=== PATIENT | female | born 1930 | race Caucasian/White ===

== ENCOUNTER 2016-09-29 10:29 | Inpatient (IN) | payer OTHER, MEDICARE ==
[~2016-09-29] VITALS: Ht 157.5 cm; Wt 56.8 kg
[2016-09-29] VITALS (34 sets, daily range): BP systolic 78–178; BP diastolic 41–102; PULSE 76–139; RESP 14–36; TEMP 96–100.1; O2SAT 77–100
[~2016-09-29 10:29] MED LIST: ACET650T10 PR; ALBU.5I INH; ATEN-100 PO; DIPH25 OR; DOCU1CAP39 PO; LORA10TA OR; LOVA40TA PO; LOVE30IN SC; PROC90TA PO; REME15TA OR; SYMB160A INH; ULTR50TA PO
[2016-09-29] MEDS ORDERED: ETOMIDATE 40 MG/20 ML VIAL ONE (10:35)
[2016-09-29] MEDS ORDERED: SUCCINYLCHOLINE CHLORIDE 200 MG/10 ML VIAL ONE (10:36)
[2016-09-29] MEDS ORDERED: PROPOFOL 500 MG/50 ML INJ 50 ML ONE (10:40)
[2016-09-29] MEDS ORDERED: BUSP5TAB PO (10:51)
[2016-09-29] MEDS ORDERED: FURO20TA PO (10:51)
[2016-09-29] MEDS ORDERED: ATEN25TA PO (10:51)
[2016-09-29] MEDS ORDERED: MIRTA15 PO (10:51)
[2016-09-29] MEDS ORDERED: AMLO2.5T PO (10:51)
[2016-09-29] MEDS ORDERED: SYMB80AE INH (10:51)
[2016-09-29] MEDS ORDERED: PANT20TA2 PO (10:51)
[2016-09-29] MEDS ORDERED: TRAM50TA PO (10:51)
[2016-09-29] MEDS ORDERED: LOVA40TA PO (10:51)
[2016-09-29] MEDS: RESP: ALBUTEROL 2.5 MG/IPRATROPIUM 0.5 MG NEB (SCH) INH ×3 (11:05→20:21)
[2016-09-29] MEDS ORDERED: ETOMIDATE 20 MG/10 ML VIAL IV PUSH ONE (11:15)
[2016-09-29] MEDS ORDERED: SUCCINYLCHOLINE CHLORIDE 200 MG/10 ML VIAL IV PUSH ONE (11:15)
[2016-09-29] MEDS ORDERED: MIDAZOLAM HCL 2 MG/2 ML VIAL IV PUSH ONE (11:30)
--- NOTE | 2016-09-29 11:30 | RADRPT ---
EXAM DATE/TIME: 09/29/2016 11:07 [facility] COMPARISON: No previous studies available for comparison. INDICATIONS : Short of breath, endotrachial tube and ogt placement. MEDICAL HISTORY : None. SURGICAL HISTORY : None. ENCOUNTER: Initial ACUITY: 1 day PAIN SCORE: Non-responsive. LOCATION: Bilateral chest FINDINGS: A single view of the chest demonstrates the lungs to be symmetrically aerated without evidence of mas s, infiltrate or effusion. The lung colindres are hyperaerated bilaterally. There is chronic interstitia l changes bilaterally. The ET tube and NG tube appear to be in good position. There is no evidence of pneumothorax. There is chronic pleural thickening at both apices. The cardiomediastinal contours are unremarkable. Osseous structures are intact. CONCLUSION: 1. ET tube and NG tube are in good position. 2. No pneumothorax. 3. Hyperaeration bilaterally with chronic interstitial changes characteristic of COPD. 4. No acute pulmonary infiltrates. Prakash Diane MD on September 29, 2016 at 11:27 Board Certified Radiologist. This report was verified electronically.
[2016-09-29 11:38] LABS: BLOOD GAS BASE EXCESS -5.2 mmol/L (-2-2); BLOOD GAS CARBOXYHEMOGLOBIN 0.8 % (0-4); BLOOD GAS HCO3 20 mmol/L (22-26); BLOOD GAS METHEMOGLOBIN 1.5 % (0-2); BLOOD GAS O2 HGB SATURATION 96 % (90-100); BLOOD GAS OXYGEN CONTENT 15.7 Vol % (12.0-20.0); BLOOD GAS PCO2 40 mmHg (38-42); BLOOD GAS PO2 352 mmHG (61-120); CRITICAL VALUE NO; DRAW SITE RT RADIAL; FIO2 100 %; NUMBER OF ARTERIAL PUNCTURES 1; OXYGEN DEVICE VENTILATOR; STAT YES; TEMP CORR TO 98.6; ULNAR PULSE PRESENT; VENT SETTINGS AC/14/500/+5
[2016-09-29 11:40] LABS: AUTOMATED NEUTROPHIL # 8.7 TH/MM3 (1.8-7.7); BASOPHIL # 0.1 TH/MM3 (0-0.2); BASOPHIL % 0.6 % (0.0-2.0); EOSINOPHIL % 0.4 % (0.0-4.0); HEMATOCRIT 36.2 % (35.0-46.0); HEMO FLAGS DIFF FINAL; LYMPH % 15.2 % (9.0-44.0); LYMPHOCYTE # 1.7 TH/MM3 (1.0-4.8); MEAN CELL VOLUME 90.1 FL (80.0-100.0); MEAN CORPUSCULAR HEMOGLOBIN 29.2 PG (27.0-34.0); MEAN CORPUSCULAR HGB CONC 32.4 % (32.0-36.0); MONO % 7.5 % (0.0-8.0); NEUT % 76.3 % (16.0-70.0); PLATELET COUNT 287 TH/MM3 (150-450); RED BLOOD COUNT 4.01 MIL/MM3 (4.00-5.30); WHITE BLOOD COUNT 11.4 TH/MM3 (4.0-11.0)
[2016-09-29] MEDS ORDERED: VANCOMYCIN INJ 1,000 MG in SODIUM CHLOR 0.9% 250 ML INJ 250 ML IV SCH (11:45)
[2016-09-29] MEDS ORDERED: PIPERACIL-TAZO 4.5 GM PREMIX 100 ML IV ONE (11:45)
[2016-09-29] MEDS ORDERED: AZITHROMYCIN INJ 500 MG in SODIUM CHLOR 0.9% 250 ML INJ 250 ML IV ONE (11:45)
[2016-09-29 11:48] LABS: PROTHROMBIN TIME - PATIENT 10.8 SEC (9.8-11.6)
[2016-09-29 11:49] LABS: BLOOD, URINE NEG (NEG); COMMENT (UR) CULT NOT INDICATED; CULTURE IF INDICATED CULT NOT INDICATED; GLUCOSE,URINE NEG (NEG); KETONE, URINE NEG (NEG); MUCUS URINE FEW /lpf (OCC); NITRITE,URINE NEG (NEG); URINE COLOR YELLOW (YELLW/STRAW)
[2016-09-29 12:03] LABS: ANION GAP 10 MEQ/L (5-15); BICARBONATE 24.8 MEQ/L (21.0-32.0); BLOOD UREA NITROGEN 22 MG/DL (7-18); CHLORIDE 96 MEQ/L (98-107); GLOMERULAR FILTRATION RATE 31 ML/MIN (>89); MAGNESIUM 2.2 MG/DL (1.5-2.5); POTASSIUM 4.7 MEQ/L (3.5-5.1); SODIUM (NA) 131 MEQ/L (136-145)
[2016-09-29 12:07] LABS: CREATINE KINASE 130 U/L (26-192)
--- NOTE | 2016-09-29 12:07 | PD ---
HPI Chief Complaint: Respiratory Distress Time Seen by Provider: 10:52 Travel History International Travel<30 days: No Contact w/Intl Traveler<30days: No Traveled to known affect area: No History of Present Illness HPI 85-year-old female was brought into the emergency room by EMS as a possible STEMI alert. Patient was in severe respiratory distress and was unable to give any meaningful history. However upon asking patient denied of any chest pain. As per EMS patient has been sick for almost a week with shortness of breath and congestion. She was started on a Z-Galindo. However since last night her respiratory condition worsened and her daughter called 911 this morning. Her saturation was 84% on 4 L of oxygen via nasal cannula. Heart rate was in 130s. Her rectal temperature was 100.1. Patient was speaking 1 word per breath. She had received 2 albuterol on route by EMS. Patient did not feel any improvement with the DuoNeb's. She was also given 125 mg of IV Solu-Medrol. She has history of severe emphysema as per the paramedics. Daughter was on her way to the emergency room. I looked at the patient's condition and decided to intubate her. I spoke with the patient and expressed to her my concern regarding her breathing and need for intubation and patient agreed. [facility] Past Medical History Narrative Medical List of her past medical history was reviewed from the nursing note. Cardiovascular Problems: Yes High Cholesterol: Yes COPD: Yes Hypertension: Yes Medical other: Yes (PER FAMILY, RECENT START ON Z PACK ) Respiratory: Yes (NODULE FOUND ON LUNG) Menopausal: Yes : 3 Para: 3 Past Surgical History Gynecologic Surgery: Yes (HYSTERECTOMY) Hysterectomy: Yes (PARTIAL) Social History Alcohol Use: Yes (COUPLE COCKTAILS NIGHTLY) Tobacco Use: Yes (1/2 PPD) Substance Use: No Allergies-Medications (Allergen,Severity, Reaction): Coded Allergies: Codeine (Verified Allergy, Severe, 12/14/12) Lortab (Verified Allergy, Severe, 09/29/16) Percocet (Verified Allergy, Unknown, 09/29/16) Comments List of her allergies reviewed from the nursing note. Reported Meds & Prescriptions Reported Meds & Active Scripts Active Reported Tramadol (Tramadol HCl) 50 Mg Tab 50 Mg PO Q4H PRN Lovastatin 40 Mg Tab 40 Mg PO DAILY Symbicort Inh (Budesonide/Formoterol Fumarate) 80-4.5 Mcg/Act Aero 1 Puff INH Q12HR Pantoprazole (Pantoprazole Sodium) 20 Mg Tab 20 Mg PO DAILY Mirtazapine 15 Mg Tab 15 Mg PO HS Furosemide 20 Mg Tab 20 Mg PO DAILY Buspirone (Buspirone HCl) 5 Mg Tab 5 Mg PO Atenolol 25 Mg Tab 25 Mg PO DAILY Amlodipine (Amlodipine Besylate) 2.5 Mg Tab 2.5 Mg PO DAILY Remeron 15 mg (Mirtazapine) 15 Mg Tab 15 Mg OR HS Ultram (Tramadol HCl) 50 Mg Tab 50 Mg PO Q6HPRN Symbicort (Budesonide/Formoterol Fumarate) 160 Mcg/4.5 Mcg Aer 2 Puff INH BID * SHAKE WELL BEFORE USE * Claritin 10 Mg Tab (Loratadine) 10 Mg Tab 10 Mg OR DAILYPRN Acetaminophen Er (Acetaminophen) 650 Mg Supp 650 Mg LA Q6HPRN Colace 100 Mg Cap (Docusate Sodium) 100 Mg Cap 100 Mg PO BID Proventil Conc Ud 0.5% (2.5 Mg/0.5 Ml) (Albuterol Sulfate) 2.5 Mg/0.5 Ml Inha 2.5 Mg INH Q4HPRN Benadryl 25 Mg Cap (Diphenhydramine Hcl) 25 Mg Cap 25 Mg OR Q6HPRN Lovenox (Enoxaparin Sodium) 30 Mg/0.3 Ml Inj 30 Mg SC DAILY Lovastatin 40 Mg Tab 40 Mg PO DAILY Nifedipine Er (Nifedipine) 90 Mg Tab 90 Mg PO DAILY Atenolol 25 Mg Tab 25 Mg PO DAILY Narrative Medication List of her home medications reviewed from the nursing note. Review of Systems Except as stated in HPI: all other systems reviewed are Neg Physical Exam Narrative GENERAL: Altered mental status, severe respiratory distress, emaciated. SKIN: Warm and dry. HEAD: Atraumatic. Normocephalic. EYES: Pupils equal and round. No scleral icterus. No injection or drainage. ENT: No nasal bleeding or discharge. Mucous membranes pink and moist. NECK: Trachea midline. JVD. CARDIOVASCULAR: Regular rate and rhythm. Tachycardia. No murmur appreciated. RESPIRATORY: Decreased air entry bilaterally, accessory muscles use for respiration, tachypnea, one-word per breath GASTROINTESTINAL: Abdomen soft, non-tender, nondistended. Hepatic and splenic margins not palpable. MUSCULOSKELETAL: No obvious deformities. No clubbing. No cyanosis. No edema. NEUROLOGICAL: Anxious and lethargic. No obvious cranial nerve deficits. Motor grossly within normal limits. PSYCHIATRIC: Anxious; insight and judgment normal. Data Data Last Documented VS Vital Signs Date Time Temp Pulse Resp B/P Pulse Ox O2 Delivery O2 Flow Rate FiO2 09/29/16 12:11 97 16 93/62 100 Ventilator 09/29/16 12:07 4.00 09/29/16 11:53 50 09/29/16 11:10 100.1 Orders Etomidate Inj (Amidate Inj) (09/29/16 10:35) Succinylcholine Inj (Quelicin Inj) (09/29/16 10:36) Propofol 500 Mg/50 Ml Inj (Diprivan 500 (09/29/16 10:40) Complete Blood Count With Diff (09/29/16 10:59) Basic Metabolic Panel (Bmp) (09/29/16 10:59) B-Type Natriuretic Peptide (09/29/16 10:59) Prothrombin Time / Inr (Pt) (09/29/16 10:59) Magnesium (Mg) (09/29/16 10:59) Ckmb (Isoenzyme) Profile (09/29/16 10:59) Troponin I (09/29/16 10:59) Arterial Blood Gas (Abg) (09/29/16 10:59) Urinalysis - C+S If Indicated (09/29/16 10:59) Blood Culture (09/29/16 10:59) Iv Access Insert/Monitor (09/29/16 10:59) Electrocardiogram (09/29/16 10:59) Ecg Monitoring (09/29/16 10:59) Oximetry (09/29/16 10:59) Oxygen Administration (09/29/16 10:59) Chest, Single Ap (09/29/16 10:59) Sodium Chloride 0.9% Flush (Ns Flush) (09/29/16 11:00) Albuterol-Ipratropium Neb (Duoneb Neb) (09/29/16 11:00) Lactic Acid (09/29/16 10:59) Echo 2d Comp W/Dopp(Routine) (09/29/16 ) Consult Cardiology (09/29/16 ) Succinylcholine Inj (Quelicin Inj) (09/29/16 11:15) Etomidate Inj (Amidate Inj) (09/29/16 11:15) Propofol 1000 Mg/100 Ml Inj (Diprivan 10 (09/29/16 11:15) ^ Infusion (09/29/16 11:11) RASS (09/29/16 11:11) Neurological Rass Scale WILLIAM.Q2H (09/29/16 11:11) Radha-Gastric Tube Insert/Mon (09/29/16 11:11) Urinary Catheter Insert/Apply (09/29/16 11:11) Midazolam Inj (Versed Inj) (09/29/16 11:30) Electrocardiogram (09/29/16 10:34) Piperacil-Tazo 4.5 Gm Premix (Zosyn 4.5 (09/29/16 11:45) Vancomycin Inj (Vancomycin Inj) (09/29/16 11:45) Azithromycin Inj (Zithromax Inj) (09/29/16 11:45) (Hub Use Only)Inp Phy Cons/Ref (09/29/16 ) Sodium Chlor 0.9% 1000 Ml Inj (Ns 1000 M (09/29/16 12:15) CKMB (09/29/16 11:10) CKMB% (09/29/16 11:10) Admit Order (Ed Use Only) (09/29/16 12:27) Labs Laboratory Tests Test 09/29/16 09/29/16 11:10 11:30 White Blood Count 11.4 TH/MM3 Red Blood Count 4.01 MIL/MM3 Hemoglobin 11.7 GM/DL Hematocrit 36.2 % Mean Corpuscular Volume 90.1 FL Mean Corpuscular Hemoglobin 29.2 PG Mean Corpuscular Hemoglobin 32.4 % Concent Red Cell Distribution Width 14.0 % Platelet Count 287 TH/MM3 Mean Platelet Volume 10.5 FL Neutrophils (%) (Auto) 76.3 % Lymphocytes (%) (Auto) 15.2 % Monocytes (%) (Auto) 7.5 % Eosinophils (%) (Auto) 0.4 % Basophils (%) (Auto) 0.6 % Neutrophils # (Auto) 8.7 TH/MM3 Lymphocytes # (Auto) 1.7 TH/MM3 Monocytes # (Auto) 0.9 TH/MM3 Eosinophils # (Auto) 0.0 TH/MM3 Basophils # (Auto) 0.1 TH/MM3 CBC Comment DIFF FINAL Differential Comment Prothrombin Time 10.8 SEC Prothromb Time International 1.0 RATIO Ratio Urine Color YELLOW Urine Turbidity CLEAR Urine pH 6.0 Urine Specific [place] 1.010 Urine Protein 30 mg/dL Urine Glucose (UA) NEG mg/dL Urine Ketones NEG mg/dL Urine Occult Blood NEG Urine Nitrite NEG Urine Bilirubin NEG Urine Urobilinogen LESS THAN 2.0 MG/DL Urine Leukocyte Esterase NEG Urine RBC LESS THAN 1 /hpf Urine WBC 1 /hpf Urine Mucus FEW /lpf Microscopic Urinalysis Comment CULT NOT INDICATED Sodium Level 131 MEQ/L Potassium Level 4.7 MEQ/L Chloride Level 96 MEQ/L Carbon Dioxide Level 24.8 MEQ/L Anion Gap 10 MEQ/L Blood Urea Nitrogen 22 MG/DL Creatinine 1.58 MG/DL Estimat Glomerular Filtration 31 ML/MIN Rate Random Glucose 249 MG/DL Lactic Acid Level 3.1 mmol/L Calcium Level 8.9 MG/DL Magnesium Level 2.2 MG/DL Total Creatine Kinase 130 U/L Creatine Kinase MB 3.0 NG/ML Troponin I 0.84 NG/ML B-Type Natriuretic Peptide 476 PG/ML Blood Gas Puncture Site RT RADIAL Blood Gas Patient Temperature 98.6 Blood Gas HCO3 20 mmol/L Blood Gas Base Excess -5.2 mmol/L Blood Gas Oxygen Saturation 96 % Arterial Blood pH 7.32 Arterial Blood Partial 40 mmHg Pressure CO2 Arterial Blood Partial 352 mmHG Pressure O2 Arterial Blood Oxygen Content 15.7 Vol % Arterial Blood 0.8 % Carboxyhemoglobin Arterial Blood Methemoglobin 1.5 % Blood Gas Hemoglobin 11.0 G/DL Oxygen Delivery Device VENTILATOR Blood Gas Ventilator Setting AC/14/500/+5 Blood Gas Inspired Oxygen 100 % MDM Medical Decision Making Medical Screen Exam Complete: Yes Emergency Medical Condition: Yes Medical Record Reviewed: Yes Interpretation(s) Twelve-lead EKG initial was reviewed by me. Normal sinus rhythm, tachycardia, peaked T waves with possible ST elevation in the septal leads with Q waves, normal axis. Heart rate of 142 bpm. Differential Diagnosis COPD exacerbation, respiratory failure, pneumonia, pulmonary edema, pleural effusion, congestive heart failure Narrative Course 12:30 PM after patient initially arrived she was intubated with her permission. Once she was sedated postintubation EKG was repeated. At this point her heart rate had come down and oxygen saturation was significantly improved. The second 12-lead EKG was reviewed by me at this point. This had a heart rate of 111 bpm but better quality and did show ST elevations in V3 V4 and V5 but with no reciprocal changes. There were Q waves in the anterior septal leads. This EKG was compared to her old existing EKG in our medical record which was from 2013. This was significantly different from the old EKG. I immediately called Dr. Pena who was the all around patternmaker on. After hearing the whole history he recommended a stat echocardiogram bedside. The echocardiogram showed severe apical akinesis and wall motion abnormalities. At this point the troponin result came back which was elevated at 0.8. Dr. Pena came in very soon after and saw the patient and spoke with the family. He has recommended to go ahead and give the patient heparin bolus and drip which will be ordered. The family is not fully decided regarding cardiac catheterization yet. They will speak with the other members and let Dr. Pena know about it. Chest x-ray was within normal limits and the chest tube and OG tube to be in good position. Blood test was suggestive of possible sepsis and hence antibiotic was started as per sepsis protocol. Patient continues to be hemodynamically stable at this point. I have admitted her to the ICU after talking to the head of precision targeting. Critical Care Narrative Aggregate critical care time was 75 minutes. Time to perform other separately billable procedures was not included in the critical care time. My time did not include minutes spent treating any other patients simultaneously or on activities that did not directly contribute to the patient's treatment. The services I provided to this patient were to treat and/or prevent clinically significant deterioration that could result in: Respiratory failure, ventilator management, Q wave STEMI, heparin bolus and drip, sepsis I provided critical care services requiring my management, as noted below: Chart data review, documentation time, medication orders and management, vital sign assessments/reviewing monitor data, ordering and reviewing lab tests, ordering and interpreting/reviewing x-rays and diagnostic studies, care of the patient and discussion of the patient with the admitting physicians. Procedures Procedure Narrative After the risks and benefits were discussed the following procedure was performed: INTUBATION: The patient was put in optimal position for the procedure. Rapid sequence intubation was initiated by me using 20 milligrams of etomidate IV and 100 milligrams of succinylcholine IV. The patient was intubated with a 7.5 cuffed endotracheal tube. Tube placement was confirmed by visualization of the tube and balloon passing through the cords, capnometry and subsequent chest x-ray. Breath sounds were equal and well aerated bilaterally postintubation. No breath sounds over stomach. Patient tolerated procedure well. EKG Prior to Arrival: Yes Physician Communication Physician Communication Dr. Pena, Dr. Herrera Diagnosis Primary Impression: Respiratory failure Qualified Code: J96.01 - Acute respiratory failure with hypoxia Additional Impressions: Widespread acute Q wave ST elevation myocardial infarction (STEMI) Sepsis Qualified Code: A41.9 - Sepsis, due to unspecified organism Tricuspid regurgitation Qualified Code: I36.1 - Non-rheumatic tricuspid valve insufficiency Admitting Information Admitting Physician Requests: Enrrique Johnson MD Sep 29, 2016 12:07
[2016-09-29] MEDS ORDERED: SODIUM CHLOR 0.9% 1000 ML INJ 1,000 ML IV ONE ×2 (12:15→18:45)
[2016-09-29] MEDS: PROPOFOL 1000 MG/100 ML INJ 100 ML IV SCH (12:44)
[2016-09-29] MEDS ORDERED: HEPARIN SODIUM - IV 10,000 UNITS/10 ML VIAL IV ONE (12:45)
[2016-09-29] MEDS ORDERED: HEPARIN-D5W INJ 250 ML IV SCH (12:45)
[2016-09-29] MEDS ORDERED: ASPIRIN 81 MG CHEW TAB CHEW ONE (13:00)
[2016-09-29 13:01] LABS: HEMATOCRIT 36.2 % (35.0-46.0); MEAN CELL VOLUME 90.2 FL (80.0-100.0); MEAN CORPUSCULAR HEMOGLOBIN 30.2 PG (27.0-34.0); MEAN CORPUSCULAR HGB CONC 33.4 % (32.0-36.0); PLATELET COUNT 274 TH/MM3 (150-450); RED BLOOD COUNT 4.02 MIL/MM3 (4.00-5.30); RED CELL DISTRIBUTION WIDTH 13.8 % (11.6-17.2); REVIEW FLAG FINAL; WHITE BLOOD COUNT 12.1 TH/MM3 (4.0-11.0)
[2016-09-29 13:09] LABS: APTT (PATIENT) 32.2 SEC (24.3-30.1)
[2016-09-29] MEDS ORDERED: NOREPINEPHRINE 4 MG/4 ML AMP ONE (13:21)
--- NOTE | 2016-09-29 13:37 | EC ---
Study Study Date:09/29/2016 STUDY CONCLUSIONS SUMMARY - Left ventricle: The cavity size was normal. Wall thickness was normal. Systolic function was severely reduced. The estimated ejection fraction was in the range of 25% to 30%. Diffuse hypokinesis. Hypokinesis of the anteroseptal and apical myocardium. - Mitral valve: Mild regurgitation. - Tricuspid valve: Severe regurgitation. - Pulmonary arteries: PA peak pressure: 57mm Hg (S). If LV function is below 40, please consider prescribing an ACEI or ARB or document rationale for non-use. PROCEDURE DATA STUDY STATUS: Elective. Procedure: Transthoracic echocardiography. Image quality was good. Scanning was performed from the parasternal, apical, and subcostal acoustic windows. Study completion: The patient tolerated the procedure well. Transthoracic echocardiography. M-mode, complete 2D, complete spectral Doppler, and color Doppler. Patient status: Inpatient. CARDIAC ANATOMY LEFT VENTRICLE: The cavity size was normal. Wall thickness was normal. Systolic function was severely reduced. The estimated ejection fraction was in the range of 25% to 30%. Diffuse hypokinesis. Regional wall motion abnormalities: Hypokinesis of the anteroseptal and apical myocardium. AORTIC VALVE: Trileaflet; normal thickness, mildly calcified leaflets. Doppler: Transvalvular velocity was within the normal range. There was no stenosis. No regurgitation. AORTA: Aortic root: The aortic root was normal in size. MITRAL VALVE: Structurally normal valve. Doppler: Transvalvular velocity was within the normal range. There was no evidence for stenosis. Mild regurgitation. Mean gradient: 2mm Hg (D). LEFT ATRIUM: The atrium was normal in size. RIGHT VENTRICLE: The cavity size was normal. Wall thickness was normal. PULMONIC VALVE: Doppler: Transvalvular velocity was within the normal range. There was no evidence for stenosis. No regurgitation. TRICUSPID VALVE: Structurally normal valve. Doppler: Transvalvular velocity was within the normal range. Severe regurgitation. PULMONARY ARTERY: The main pulmonary artery was normal-sized. Systolic pressure was within the normal range. RIGHT ATRIUM: The atrium was normal in size. PERICARDIUM: There was no pericardial effusion. SYSTEMIC VEINS: Inferior vena cava: The vessel was normal in size. BASIC MEASUREMENTS ADULT Normal Left ventricle LV internal dimension, ED, chordal level, *40.2 mm 43-52 PLAX LV posterior wall thickness, ED 8.14 mm IVS/LVPW ratio, ED 1.11 <1.3 Volume, ED, MOD, 1-plane 163 ml Volume, ES, MOD, 1-plane 113 ml Ejection fraction, MOD, 1-plane 31 % Stroke volume, MOD, 1-plane 50 ml Volume, ED, MOD, 2-plane 148 ml Volume, ES, MOD, 2-plane 105 ml Ejection fraction, MOD, 2-plane 29 % Stroke volume, MOD, 2-plane 43 ml Ventricular septum Septal thickness, ED 9.03 mm Left atrium Anterior-posterior dimension 37 mm Right ventricle RV internal dimension, ED, PLAX *18.9 mm 19-38 DOPPLER MEASUREMENTS ADULT Normal Main pulmonary artery Pressure, S *57 mm Hg =30 Aortic valve VTI, S 30.6 cm Mitral valve Peak E-wave velocity 56.2 cm/s Peak A-wave velocity 123 cm/s Mean velocity, D 57.3 cm/s Mean gradient, D 2 mm Hg Peak E/A ratio 0.5 Tricuspid valve Regurgitant peak velocity 342 cm/s Peak RV-RA gradient, S 47 mm Hg Systemic veins Estimated CVP 10 mm Hg Right ventricle RV pressure, S *57 mm Hg <30 LEGEND: Mean values are shown as u=mean value. Asterisk (*) musa values outside specified normal range. Prepared and signed by Horacio Acuna [id number]
[2016-09-29] MEDS ORDERED: MISCELLANEOUS NURSING INFORMATION XX SCH (14:00)
[2016-09-29] MEDS ORDERED: GLUCAGON 1 MG/ML VIAL OTHER PRN (14:00)
[2016-09-29] MEDS ORDERED: CHLORHEXIDINE GLUCONATE 2 % 1 PACK (2 CLOTHS) TOP PRN (14:00)
[2016-09-29] MEDS ORDERED: DEXTROSE 50% IN WATER 50 ML VIAL(D50) IV PUSH PRN (14:00)
--- NOTE | 2016-09-29 14:06 | RADRPT ---
EXAM DATE/TIME: 09/29/2016 13:36 [facility] COMPARISON: CHEST SINGLE AP, September 29, 2016, 11:07. INDICATIONS : Repositioning of endotrachial tube. MEDICAL HISTORY : None. SURGICAL HISTORY : None. ENCOUNTER: Subsequent ACUITY: 1 day PAIN SCORE: Non-responsive. LOCATION: Bilateral chest FINDINGS: Portable AP views of the chest demonstrate a normal-sized cardiac silhouette with calcification of th e aorta. Endotracheal tube tip is near the aortic knob level measuring approximately 5.1 cm from the sara, not significantly different than the study from 4 hours ago. Nasogastric tube courses beyond the GE junction. Lungs remain hyperinflated. There is a nodular opacity at the left lung base measuri ng approximately 12 mm. No effusion or pneumothorax is identified. There is biapical scar. CONCLUSION: 1. Endotracheal tube has not significantly changed in position. Tip measures approximately 5.1 cm fro m the sara. 2. There is a 12 mm nodule at the left lung base. This should be further evaluated with chest CT. Misael Josue MD on September 29, 2016 at 14:02 Board Certified Radiologist. This report was verified electronically.
[2016-09-29] MEDS: PANTOPRAZOLE SODIUM 40 MG VIAL IV SCH (14:26)
[2016-09-29] MEDS: methylPREDNISolone SOD SUCC 40 MG/1 ML VIAL IV PUSH SCH ×2 (14:26→20:29)
[2016-09-29] MEDS: SODIUM CHLORIDE 0.9% FLUSH 5 ML FLUSH IVF PRN (14:26)
[2016-09-29] MEDS: SODIUM CHLOR 0.9% 1000 ML INJ 1,000 ML IV SCH (14:48)
--- NOTE | 2016-09-29 15:25 | MH ---
cc: CHERIE WRAY M.D. DATE OF ADMISSION: 09/29/2016 DATE OF 1930, Patient is 85 years with hx COPD, active smoker, HTN, hyperlipidemia who presented to [facility] ED via EMS as a possible STEMI alert. According to the daughter the patient complained of chest congestion and cough on Monday and she was started on a Z-Galindo by her primary care physician. In the ED she was in severe respiratory distress and she was found to have a saturation of 84% on 4 liters in addition she was tachycardiac and had hand had a rectal temperature of 100.1. She was given bronchodilator treatment in route without any significant improvements. In addition she received Solu-Medrol 125 mg IV push. The patient was subsequently intubated with etomidate, succinylcholine of Versed and placed on full mechanical ventilation. She was also started on a Diprivan for sedation. Post intubation the patient became hypotensive and was started on Levophed at five mics. She was given 2 liters of crystalloids in the ED. He has service. EKG in the ED showed anterior septal of myocardial infarction and sinus tachycardia. Stat echo was performed in the ED which showed cardiomyopathy with EF of 25-30% and diffuse hypokinesis and hypokinesis of the anterior septal and apical myocardium. The patient was seen by Dr. Pena from cardiology service and was started on heparin infusion per CO protocol. Normal and the family is still thinking about cardiac catheterization. Her laboratory data significant for mild elevated troponin at 0.84 with a total CK 130. Also she had also she has elevated lactic acid level at 3.1. Chest x-ray In the ED showed ET tube above the sara, COPD changes with a right with chronic interstitial changes. In the in the ED. She received vancomycin, Zosyn, azithromycin has scheduled to receive aspirin. PAST MEDICAL HISTORY: 1. A past medical history significant for chronic obstructive pulmonary disease 2. Hypertension. 3. Hyperlipidemia. PAST SURGICAL HISTORY Previous hysterectomy. ALLERGIES Allergies to CODEINE LORTAB PERCOCET SOCIAL HISTORY Social drinker active smoker where she still smokes one to two cigarettes per day reported MEDICATIONS medications include 1. Tramadol. 2. Lovastatin. 3. Symbicort. 4. Protonix. 5. Lasix. 6. Atenolol. 7. Norvasc. FAMILY HISTORY: Family history noncontributory. REVIEW OF SYSTEMS As per HPI. Rest of the systems limited physical exam 85-year-old female intubated for respiratory failure. Vital signs: Temperature 100.1 rectally, pulse of 89, respiratory rate of 18, blood pressure 123/75, saturation 97% vent setting assist control rate of 18, tidal volume 358, PEEP of 6520, PEEP of eight, FIO2 100%. HEAD, EYES, EARS, NOSE, AND THROAT: Atraumatic, normocephalic pupil equal and active Pap accommodation X on muscles intact. Conjunctiva pink. Nonicteric sclerae. Oral mucosa within normal. NECK: Supple. No JVD, adenopathy or thyromegaly. Trachea midline. Orally intubated. CARDIOVASCULAR SYSTEM: Regular rate and rhythm. Normal S1-S2. No murmurs, rubs or gallops noted. Pulmonary exam bilateral equal entry. No crackles, overall diminished. No wheezing. ABDOMEN: Soft, nontender, no distension. Positive bowel sounds. EXTREMITIES: No cyanosis, edema. NEUROLOGIC: Intubated. LABORATORY DATA ABG post intubation showed a pH of 7.32, CO2 40, pAO2 352, bicarb 20, sats 96% on assist control ventilation rate of 14, tidal volume 500, PEEP of five, FIO2 107 sodium of 31,004.7, chloride 96, CO2 24, BUN 22, creatinine 1.58, glucose 249, overall is a variety lactic acid 3.1, troponin 0.84, BNP 476, WBC 12.1, hemoglobin 12.1, hematocrit 36, platelet count 274. Urinalysis negative for leukocyte esterase negative, negative nitrite, one WBC. RADIOGRAPHY Chest x-ray Post intubation showed ET tube above sara chronic interstitial changes characteristics are characteristic of COPD. No acute pulmonary infiltrates noted. IMPRESSION 1. Acute respiratory failure requiring intubation 2. Shock, likely cardiogenic 3. Acute coronary syndrome. 4. cardiomyopathy with EF of 25-30%. 5. Chronic obstructive pulmonary disease exacerbation. 6. Lactic acidemia. 7. Mild acute kidney injury. 8. Hyponatremia. 9. Hyperglycemia. 10. Hypertension. 11. Hyperlipidemia. RECOMMENDATIONS 1. He will be placed on fentanyl infusion for sedation and vent synchrony if needed. Daily sedation vacation and monitor neuro status closely. 2. Continue with vent support and maintain sats above 92%. 3. Bronchodilators in the form of DuoNeb q. six and will start on Solu-Medrol 40 mg IV q. 8. 4. will initiate ICU vent bundle. 5. Pressors continue with Levophed monitor heart rate and blood pressure closely and maintain MAP greater 65 mmHg. 6. Serial lactic acid monitoring. 7. Monitor troponins. 8. Continue with aspirin and heparin drip per CO protocol. 9. Echocardiogram performed in the ED showed cardiomyopathy with EF of 25-30% with diffuse hypokinesis and hypokinesis of the anterior septal and apical myocardium. The family still is fighting about possible cardiac catheterization. 10. Hold antihypertensive medications. 11. Monitor renal function Is and Os and avoid nephrotoxins. Gentle IV hydration. She was given 2 liters of crystalloids in the ED. 12. Will continue with maintenance fluids NS 42 ml per hour. 13. Keep n.p.o. for now and place on Protonix 40 mg IV daily for GI prophylaxis. 14. The patient was given vancomycin, Zosyn and azithromycin in the emergency department. We will continue with Zosyn empirically. and monitor for signs of infections which include fever and WBC. 15. Follow up on blood cultures. 16. Chest x-ray Post intubation showed no acute pulmonary infiltrates and urinalysis negative for urinary tract infection. 17. Sliding scale insulin with Accu-Chek for glycemic control. 18. Monitor CBC, Coags as the patient will be on heparin drip per CO protocol. 19. Gastrointestinal prophylaxis with Protonix 40 mg daily and DVT prophylaxis with SCDs and heparin drip. 20. Place a central line if needed. 21. Consult palliative care to assess with goals of care. 22. Case discussed with Dr. Pena from cardiology and ED staff. 23. Overall prognosis is guarded Critical care time 60 minutes excluding procedures. MD FLOR Mcmillan/david /2:28 PM /2:51 PM JOSE ARMANDO
[2016-09-29] MEDS: INSULIN NovoLIN REGULAR SUPPLEMENTAL SCALE SQ SCH ×2 (15:42→20:00)
[2016-09-29] MEDS: PIPERACIL-TAZO 3.375 GM PREMIX 50 ML IV SCH (16:00)
--- NOTE | 2016-09-29 16:15 | PD.CONS ---
Consult Service Palliative Care Consult Requested By Dr. Herrera Primary Care Physician Unknown Reason for Consultation a. To assist with evaluation and management of symptoms including:dyspnea b. To assist medical decision maker(s) with: better understanding of current medical conditions; weighing benefits/burdens of medical treatment options; making medical treatment decisions. HPI History of Present Illness Patient is a 85-year-old with past medical history significant for COPD that was brought into the emergency room today as a STEMI alert. Per family member she was having respiratory symptoms the past few days prior to coming to the hospital. There has been family members with aspiratory infections. Patient was started on a Z-Galindo. This morning patient became more dyspneic and daughter called 911. Patient sats was in the 80s on 4 L nasal cannula, patient was tachycardic. In the ER: * Pulse was 139, respirations 36, blood pressure is 172, pulse ox 87% * Sodium was 131, potassium is 4.7, chloride 96, bicarbonate 24, BUNs 25 mg 1.58 * Patient has elevated lactic acid * Troponin I 0.84, BNP is 476. * EKG shows Q waves in the anterior septal leads, ST elevations in V3 V4 V5. * Blood gas, pH is 7.32, PCO2 is 40, , HCO3 20 * PT standpoint, INR is 1.0, PTT 32.2 * UA shows some urine protein otherwise unremarkable cultures not indicated. * Chest x-ray shows no pneumothorax, hyperaeration, COPD changes noted. No acute pulmonary infiltrates. * Song And Dance Performer came by and evaluated patient. Song And Dance Performer's came down and evaluated patient and spoke with family. The meantime patient's was getting more more dyspneic. ER physician consulted with patient and agreeable to intubation. * Status post intubation patient became hypotensive and was started on the Levophed at 5 mics. * Patient was started on heparin bolus. * Critical medicine as evaluated patient and spoke with family. Patient is to transfer to ICU when bed becomes available. * Palliative care was consulted to review goals of care, specifically CODE STATUS with family. On my visit patient is intubated, grimacing appears somewhat uncomfortable at times. Patient's daughter Charlene Norton was at bedside and was appropriately tearful. I was able to speak with patient's surviving children Charlene Norton in person, and Sally Davies (daugthers). Updated patient current status, review imaging. CODE STATUS was discussed including CPR, and chest compressions/ shock. Reviewed the her prognosis should she have another code event, outcome of doing cpr/shock on an 85 year old already with an DE, who has copd, and cardiogenic shock. Daughters do not want her to suffer, and no to cpr/shock. Okay with pressors and acls drugs. They are amenable for us to follow as pt's clinical condition evolves. Function/Cognitive Trajectory Per nephew, she has COPD, but besides that have been doing well. Review of Systems ROS Limitations: Clinical Condition Respiratory: COMPLAINS OF: Shortness of breath Past Family Social History Coded Allergies: Codeine (Verified Allergy, Severe, 12/14/12) Lortab (Verified Allergy, Severe, 09/29/16) Percocet (Verified Allergy, Unknown, 09/29/16) Past Medical History COPD Hypertension Hyperlipidemia Tobacco use Past Surgical History Hysterectomy Reported Medications Tramadol (Tramadol HCl) 50 Mg Tab 50 Mg PO Q4H PRN Lovastatin 40 Mg Tab 40 Mg PO DAILY Symbicort Inh (Budesonide/Formoterol Fumarate) 80-4.5 Mcg/Act Aero 1 Puff INH Q12HR Pantoprazole (Pantoprazole Sodium) 20 Mg Tab 20 Mg PO DAILY Mirtazapine 15 Mg Tab 15 Mg PO HS Furosemide 20 Mg Tab 20 Mg PO DAILY Buspirone (Buspirone HCl) 5 Mg Tab 5 Mg PO Atenolol 25 Mg Tab 25 Mg PO DAILY Amlodipine (Amlodipine Besylate) 2.5 Mg Tab 2.5 Mg PO DAILY Remeron 15 mg (Mirtazapine) 15 Mg Tab 15 Mg OR HS Ultram (Tramadol HCl) 50 Mg Tab 50 Mg PO Q6HPRN Symbicort (Budesonide/Formoterol Fumarate) 160 Mcg/4.5 Mcg Aer 2 Puff INH BID * SHAKE WELL BEFORE USE * Claritin 10 Mg Tab (Loratadine) 10 Mg Tab 10 Mg OR DAILYPRN Acetaminophen Er (Acetaminophen) 650 Mg Supp 650 Mg AR Q6HPRN Colace 100 Mg Cap (Docusate Sodium) 100 Mg Cap 100 Mg PO BID Proventil Conc Ud 0.5% (2.5 Mg/0.5 Ml) (Albuterol Sulfate) 2.5 Mg/0.5 Ml Inha 2.5 Mg INH Q4HPRN Benadryl 25 Mg Cap (Diphenhydramine Hcl) 25 Mg Cap 25 Mg OR Q6HPRN Lovenox (Enoxaparin Sodium) 30 Mg/0.3 Ml Inj 30 Mg SC DAILY Lovastatin 40 Mg Tab 40 Mg PO DAILY Nifedipine Er (Nifedipine) 90 Mg Tab 90 Mg PO DAILY Atenolol 25 Mg Tab 25 Mg PO DAILY Current Medications Medications (Trade) Dose Ordered Sig/Marie Route Start Time Stop Time Status Last Admin IV Flush 2 ml 2 ml UNSCH PRN IVF 09/29/16 11:00 09/29/16 14:26 Propofol 100 ml @ 0 mls/hr TITRATE IV 09/29/16 11:15 09/29/16 12:44 (Heparin-D5W Inj) 250 ml @ 0 mls/hr TITRATE IV 09/29/16 12:45 09/29/16 14:12 (Protonix Inj) 40 mg DAILY IV 09/29/16 14:00 09/29/16 14:26 Miscellaneous Information 1 Q361D XX 09/29/16 14:00 (Chlorhexidine 2% Cloth) 3 pack Taper DAILY@04 TOP 09/30/16 04:00 09/26/17 03:59 (Chlorhexidine 2% Cloth) 3 pack UNSCH PRN TOP 09/29/16 14:00 (D50w (Vial) Inj) 25 ml UNSCH PRN IV PUSH 09/29/16 14:00 (Glucagon Inj) 1 mg UNSCH PRN OTHER 09/29/16 14:00 (NovoLIN R SUPPLEMENTAL SCALE) 1 Q6H SQ 09/29/16 14:00 09/29/16 15:42 (Ecotrin Ec) 81 mg DAILY PO 09/30/16 09:00 Methylprednisolone Sodium Succinate 40 mg 40 mg Q8HR IV PUSH 09/29/16 14:00 09/29/16 14:26 Fentanyl Citrate 250 ml @ 0 mls/hr TITRATE IV 09/29/16 14:15 Sodium Chloride 1,000 ml @ 42 mls/hr [id number] IV 09/29/16 15:00 09/29/16 14:48 (Zosyn 3.375 Gm Premix) 50 ml @ 100 mls/hr Q8H IV 09/29/16 16:00 Family History Daughter has a recent stroke Substance Use Tobacco: Patient smokes Alcohol: Couple of cocktails nightly Prescription med abuse: No Illicits: No Psychosocial History Patient has 2 surviving children Charlene Norton and Sally Davies. Pt also had a son, who has past away. Family/friends goals: No CPR, no shock Physical Exam Vital Signs Date Time Temp Pulse Resp B/P Pulse Ox O2 Delivery O2 Flow Rate FiO2 09/29/16 15:44 97 100 09/29/16 15:32 92 18 126/87 97 Ventilator 09/29/16 15:01 94 18 154/96 98 09/29/16 14:14 89 18 123/75 97 Ventilator 09/29/16 13:59 86 18 122/81 100 Ventilator 09/29/16 13:53 85 18 98/64 98 Ventilator 09/29/16 13:47 84 18 107/61 99 Ventilator 09/29/16 13:35 83 18 109/69 99 Ventilator 09/29/16 13:29 83 18 78/52 99 Ventilator 09/29/16 13:25 100 09/29/16 13:24 83 18 79/41 87 Ventilator 09/29/16 13:15 88 16 77 09/29/16 12:46 88 16 91/58 97 Ventilator 09/29/16 12:37 90 16 82/56 98 09/29/16 12:11 97 16 93/62 100 Ventilator 09/29/16 11:53 50 09/29/16 11:51 100 16 111/72 100 Ventilator 09/29/16 11:42 50 09/29/16 11:36 100 Ventilator 09/29/16 11:30 103 14 109/74 100 09/29/16 11:28 104 14 119/84 100 Ventilator 09/29/16 11:13 109 14 131/91 100 09/29/16 11:10 100.1 109 14 137/95 100 Ventilator 09/29/16 11:08 100 100 09/29/16 10:52 112 14 121/82 100 Ventilator 09/29/16 10:45 119 14 116/58 100 Ventilator 14 100 09/29/16 10:40 100 09/29/16 10:34 139 36 178/102 87 Exam CONSTITUTIONAL/GENERAL: This is a thin elderly lady intubated, open eyes, somewhat uncomfortable, confused, intubated on ventilator TUBES/LINES/DRAINS: SKIN: No jaundice, rashes, or lesions. Ecchymoses on upper extremities. No wounds seen anteriorly. Skin temperature appropriate. Not diaphoretic. HEAD: Atraumatic. Normocephalic. EYES: Extraocular motions intact. No scleral icterus. ENT: Hearing grossly normal. Nose without bleeding or purulent drainage. Throat ET tube in place. NECK: Trachea midline. Supple, nontender. No palpable thyroid enlargement or nodularity. CARDIOVASCULAR: Regular rate and rhythm without murmurs, gallops, or rubs. RESPIRATORY/CHEST: decrease breath sound bilaterally. GASTROINTESTINAL: Abdomen soft, non-tender, nondistended. GENITOURINARY: Without palpable bladder distension. Phelps catheter in place. MUSCULOSKELETAL: Extremities without clubbing, cyanosis, or edema. Prominent echymosis on the shins of pt's lower ext bilaterally. LYMPHATICS: No palpable cervical or supraclavicular adenopathy. NEUROLOGICAL: Awake , lethargic and confused Diagnostic Tests Laboratory Laboratory Tests Test 09/29/16 09/29/16 09/29/16 11:10 11:30 12:55 White Blood Count 11.4 TH/MM3 12.1 TH/MM3 (4.0-11.0) (4.0-11.0) Red Blood Count 4.01 MIL/MM3 4.02 MIL/MM3 (4.00-5.30) (4.00-5.30) Hemoglobin 11.7 GM/DL 12.1 GM/DL (11.6-15.3) (11.6-15.3) Hematocrit 36.2 % 36.2 % (35.0-46.0) (35.0-46.0) Mean Corpuscular Volume 90.1 FL 90.2 FL (80.0-100.0) (80.0-100.0) Mean Corpuscular Hemoglobin 29.2 PG 30.2 PG (27.0-34.0) (27.0-34.0) Mean Corpuscular Hemoglobin 32.4 % 33.4 % Concent (32.0-36.0) (32.0-36.0) Red Cell Distribution Width 14.0 % 13.8 % (11.6-17.2) (11.6-17.2) Platelet Count 287 TH/MM3 274 TH/MM3 (150-450) (150-450) Mean Platelet Volume 10.5 FL 10.9 FL (7.0-11.0) (7.0-11.0) Neutrophils (%) (Auto) 76.3 % (16.0-70.0) Lymphocytes (%) (Auto) 15.2 % (9.0-44.0) Monocytes (%) (Auto) 7.5 % (0.0-8.0) Eosinophils (%) (Auto) 0.4 % (0.0-4.0) Basophils (%) (Auto) 0.6 % (0.0-2.0) Neutrophils # (Auto) 8.7 TH/MM3 (1.8-7.7) Lymphocytes # (Auto) 1.7 TH/MM3 (1.0-4.8) Monocytes # (Auto) 0.9 TH/MM3 (0-0.9) Eosinophils # (Auto) 0.0 TH/MM3 (0-0.4) Basophils # (Auto) 0.1 TH/MM3 (0-0.2) CBC Comment DIFF FINAL Differential Comment Prothrombin Time 10.8 SEC (9.8-11.6) Prothromb Time International 1.0 RATIO Ratio Urine Color YELLOW (YELLW/STRAW) Urine Turbidity CLEAR (CLEAR) Urine pH 6.0 (5.0-8.5) Urine Specific Norton 1.010 (1.002-1.035) Urine Protein 30 mg/dL (NEG-TRACE) Urine Glucose (UA) NEG mg/dL (NEG) Urine Ketones NEG mg/dL (NEG) Urine Occult Blood NEG (NEG) Urine Nitrite NEG (NEG) Urine Bilirubin NEG (NEG) Urine Urobilinogen LESS THAN 2.0 MG/DL (LESS THAN 2.0) Urine Leukocyte Esterase NEG (NEG) Urine RBC LESS THAN 1 /hpf (0-3) Urine WBC 1 /hpf (0-5) Urine Mucus FEW /lpf (OCC) Microscopic Urinalysis Comment CULT NOT INDICATED Sodium Level 131 MEQ/L (136-145) Potassium Level 4.7 MEQ/L (3.5-5.1) Chloride Level 96 MEQ/L (98-107) Carbon Dioxide Level 24.8 MEQ/L (21.0-32.0) Anion Gap 10 MEQ/L (5-15) Blood Urea Nitrogen 22 MG/DL (7-18) Creatinine 1.58 MG/DL (0.50-1.00) Estimat Glomerular Filtration 31 ML/MIN (>89) Rate Random Glucose 249 MG/DL (74-106) Lactic Acid Level 3.1 mmol/L (0.4-2.0) Calcium Level 8.9 MG/DL (8.5-10.1) Magnesium Level 2.2 MG/DL (1.5-2.5) Total Creatine Kinase 130 U/L (26-192) Creatine Kinase MB 3.0 NG/ML (0.5-3.6) Troponin I 0.84 NG/ML (0.02-0.05) B-Type Natriuretic Peptide 476 PG/ML (0-100) Blood Gas Puncture Site RT RADIAL Blood Gas Patient Temperature 98.6 Blood Gas HCO3 20 mmol/L (22-26) Blood Gas Base Excess -5.2 mmol/L (-2-2) Blood Gas Oxygen Saturation 96 % (90-100) Arterial Blood pH 7.32 (7.380-7.420) Arterial Blood Partial 40 mmHg (38-42) Pressure CO2 Arterial Blood Partial 352 mmHG Pressure O2 (61-120) Arterial Blood Oxygen Content 15.7 Vol % (12.0-20.0) Arterial Blood 0.8 % (0-4) Carboxyhemoglobin Arterial Blood Methemoglobin 1.5 % (0-2) Blood Gas Hemoglobin 11.0 G/DL (12.0-16.0) Oxygen Delivery Device VENTILATOR Blood Gas Ventilator Setting AC/14/500/+5 Blood Gas Inspired Oxygen 100 % Activated Partial 32.2 SEC Thromboplast Time (24.3-30.1) Result Diagram: 09/29/16 1255 09/29/16 1110 Microbiology Microbiology Date/Time Procedure Status Source Growth 09/29/16 11:10 Aerobic Blood Culture Received Blood Peripheral Pending 09/29/16 11:10 Anaerobic Blood Culture Received Blood Peripheral Pending 09/29/16 11:10 Aerobic Blood Culture Received Blood Peripheral Pending 09/29/16 11:10 Anaerobic Blood Culture Received Blood Peripheral Pending Imaging Last Impressions Chest X-Ray 09/29/16 1059 Signed Impressions: Service Date/Time: September 11:07 - CONCLUSION: 1. ET tube and NG tube are in good position. 2. No pneumothorax. 3. Hyperaeration bilaterally with chronic interstitial changes characteristic of COPD. 4. No acute pulmonary infiltrates. Prakash Diane MD Procedures Echo Patient/Family Conference Present at Family Conference: daughters Family Conference Time (mins): 36 Family Conference Location: Bedside, Hallway, Telephone Issues Discussed: * Palliative care role, purpose, approach * Additional medical, psychosocial, and spiritual history * Patients general health, functional status, and cognitive changes in the months leading up to the current hospitalization * Patient/family understanding of the current medical problems * Patient/family understanding of prognosis * Patients goals of care as best understood from advance directives and/or conversations and/or values * Current medical treatment options and benefits/burdens of those options * Likely scenarios comparing ongoing aggressive care with a transition to comfort measures only * Questions answered to the best of my ability * Palliative care contact information provided Assessment and Plan Disease Oriented Problem List: (1) Respiratory failure Comment: cardiogenic (2) Widespread acute Q wave ST elevation myocardial infarction (STEMI) Comment: echo show EF of 25-30%. Diffuse hypokinesis anterior septal and apical myocardium. (3) COPD (chronic obstructive pulmonary disease) (4) Cardiogenic shock (5) Kidney injury Symptom Scale: (1) Dyspnea 0-10 Scale: Unable to quantify Pertinent Non-Medical Issues Psychosocial: Spiritual: Legal: Ethical issues impacting care: Important Contacts Charlene Norton Sally Davies Prognosis 85 year old with COPD, now with DE, and cardiogenic shock. Currently getting heparin bolus, on ventalator. Prognosis is guarded to poor at this time. Code Status: Alternative Code Plan == Code: alternate code. no to cpr or shock. Okay with ACLS drug, Intubation. ==Goals: aggressive short of cpr and shock. family may transition if prognosis becomes poor. Family state they will look for DNR. == Proxy:- Daughters. Charlene Norton and Sally Whyte. pt's son past away. == dyspnea- manage on the vent. no new med rec. == Palliative care will follow as clinical condition evolves. Thank you for the opportunity to participate in the care of Ms. Del Rosario. Attestation To help prompt me to consider important information that might be impacting today's encounter and assessment, information from prior notes written by myself or my colleagues may have been "brought forward" into today's note. My signature on this note, however, is an attestation that I personally performed the exam, history, and/or decision-making noted today, and, unless otherwise indicated, the interactions with patient, family, and staff as well as the review of records all occurred today. I also attest that the listed assessment and stated plan reflect my best clinical judgment today based on the combination of historical information, prior notes, and today's exam/ interactions. When time spent is documented, it refers only to time spent today by the signer, or if indicated, combined time spent today by collaborating physician/nurse practitioner. Fausto Bhat MD Sep 29, 2016 16:15
[2016-09-29] MEDS: fentaNYL DRIP 250 ML IV SCH (17:31)
--- NOTE | 2016-09-29 18:30 | PD.CONS ---
HPI Service Cardiology Consult Requested By ER Reason for Consult HF/NSTEMI Primary Care Physician Unknown History of Present Illness 85 years with pmhx significant for severe COPD, acitve smoker, HTN, hyperlipidemia who presented to the ED via EMS with symptoms of worsening SOB this am. In the ED she was confused, hypoxic with altered mental status and fever for which she was intubated. According to the daughter Ms. Del Rosario has been complaining from chest congestion and cough since 09/24. She consulted with her PCP who starter on Z-Galindo. EKG showed sinus tachycardia with ST changes in the lateral leads and prominent Q waves. Echo done at bedside showed global hypokinesis EF of 25-30% and severe TR/PHTN. Per family pt did not wanted to be intubated. . Review of Systems ROS Limitations: Intubated, Altered Mental Status Past Family Social History Allergies: Coded Allergies: Codeine (Verified Allergy, Severe, 12/14/12) Lortab (Verified Allergy, Severe, 09/29/16) Percocet (Verified Allergy, Unknown, 09/29/16) Past Medical History 1. Severe COPD 2. Hypertension. 3. Hyperlipidemia. 4. Active smoker Past Surgical History Hysterectomy Reported Medications Reported Meds & Active Scripts Active Reported Tramadol (Tramadol HCl) 50 Mg Tab 50 Mg PO Q4H PRN Lovastatin 40 Mg Tab 40 Mg PO DAILY Symbicort Inh (Budesonide/Formoterol Fumarate) 80-4.5 Mcg/Act Aero 1 Puff INH Q12HR Pantoprazole (Pantoprazole Sodium) 20 Mg Tab 20 Mg PO DAILY Mirtazapine 15 Mg Tab 15 Mg PO HS Furosemide 20 Mg Tab 20 Mg PO DAILY Buspirone (Buspirone HCl) 5 Mg Tab 5 Mg PO Atenolol 25 Mg Tab 25 Mg PO DAILY Amlodipine (Amlodipine Besylate) 2.5 Mg Tab 2.5 Mg PO DAILY Remeron 15 mg (Mirtazapine) 15 Mg Tab 15 Mg OR HS Ultram (Tramadol HCl) 50 Mg Tab 50 Mg PO Q6HPRN Symbicort (Budesonide/Formoterol Fumarate) 160 Mcg/4.5 Mcg Aer 2 Puff INH BID * SHAKE WELL BEFORE USE * Claritin 10 Mg Tab (Loratadine) 10 Mg Tab 10 Mg OR DAILYPRN Acetaminophen Er (Acetaminophen) 650 Mg Supp 650 Mg NM Q6HPRN Colace 100 Mg Cap (Docusate Sodium) 100 Mg Cap 100 Mg PO BID Proventil Conc Ud 0.5% (2.5 Mg/0.5 Ml) (Albuterol Sulfate) 2.5 Mg/0.5 Ml Inha 2.5 Mg INH Q4HPRN Benadryl 25 Mg Cap (Diphenhydramine Hcl) 25 Mg Cap 25 Mg OR Q6HPRN Lovenox (Enoxaparin Sodium) 30 Mg/0.3 Ml Inj 30 Mg SC DAILY Lovastatin 40 Mg Tab 40 Mg PO DAILY Nifedipine Er (Nifedipine) 90 Mg Tab 90 Mg PO DAILY Atenolol 25 Mg Tab 25 Mg PO DAILY Active Ordered Medications Current Medications Medications (Trade) Dose Ordered Sig/Marie Route Start Time Stop Time Status Last Admin IV Flush 2 ml 2 ml UNSCH PRN IVF 09/29/16 11:00 09/29/16 14:26 Propofol 100 ml @ 0 mls/hr TITRATE IV 09/29/16 11:15 09/29/16 12:44 (Heparin-D5W Inj) 250 ml @ 0 mls/hr TITRATE IV 09/29/16 12:45 09/29/16 14:12 (Protonix Inj) 40 mg DAILY IV 09/29/16 14:00 09/29/16 14:26 Miscellaneous Information 1 [id number] XX 09/29/16 14:00 (Chlorhexidine 2% Cloth) 3 pack Taper DAILY@04 TOP 09/30/16 04:00 09/26/17 03:59 (Chlorhexidine 2% Cloth) 3 pack UNSCH PRN TOP 09/29/16 14:00 (D50w (Vial) Inj) 25 ml UNSCH PRN IV PUSH 09/29/16 14:00 (Glucagon Inj) 1 mg UNSCH PRN OTHER 09/29/16 14:00 (NovoLIN R SUPPLEMENTAL SCALE) 1 Q6H SQ 09/29/16 14:00 09/29/16 15:42 (Ecotrin Ec) 81 mg DAILY PO 09/30/16 09:00 Methylprednisolone Sodium Succinate 40 mg 40 mg Q8HR IV PUSH 09/29/16 14:00 09/29/16 14:26 Fentanyl Citrate 250 ml @ 0 mls/hr TITRATE IV 09/29/16 14:15 09/29/16 17:31 Sodium Chloride 1,000 ml @ 42 mls/hr [id number] IV 09/29/16 15:00 09/29/16 14:48 (Zosyn 3.375 Gm Premix) 50 ml @ 100 mls/hr Q8H IV 09/29/16 16:00 09/29/16 16:00 Family History Noncontributory Social History Smoker Physical Exam Vital Signs Vital Signs Date Time Temp Pulse Resp B/P Pulse Ox O2 Delivery O2 Flow Rate FiO2 09/29/16 17:25 97 100 09/29/16 16:10 100 100 09/29/16 16:00 96.0 76 19 86/53 97 09/29/16 15:44 97 100 09/29/16 15:32 92 18 126/87 97 Ventilator 09/29/16 15:01 94 18 154/96 98 09/29/16 14:14 89 18 123/75 97 Ventilator 09/29/16 13:59 86 18 122/81 100 Ventilator 09/29/16 13:53 85 18 98/64 98 Ventilator 09/29/16 13:47 84 18 107/61 99 Ventilator 09/29/16 13:35 83 18 109/69 99 Ventilator 09/29/16 13:29 83 18 78/52 99 Ventilator 09/29/16 13:25 100 09/29/16 13:24 83 18 79/41 87 Ventilator 09/29/16 13:15 88 16 77 09/29/16 12:46 88 16 91/58 97 Ventilator 09/29/16 12:37 90 16 82/56 98 09/29/16 12:11 97 16 93/62 100 Ventilator 09/29/16 11:53 50 09/29/16 11:51 100 16 111/72 100 Ventilator 09/29/16 11:42 50 09/29/16 11:36 100 Ventilator 09/29/16 11:30 103 14 109/74 100 09/29/16 11:28 104 14 119/84 100 Ventilator 09/29/16 11:13 109 14 131/91 100 09/29/16 11:10 100.1 109 14 137/95 100 Ventilator 09/29/16 11:08 100 100 09/29/16 10:52 112 14 121/82 100 Ventilator 09/29/16 10:45 119 14 116/58 100 Ventilator 14 100 09/29/16 10:40 100 09/29/16 10:34 139 36 178/102 87 Physical Exam GENERAL: Frail, cachetic SKIN: Warm and dry. HEAD: Normocephalic. EYES: No scleral icterus. No injection or drainage. NECK: Supple, trachea midline. + JVD or lymphadenopathy. CARDIOVASCULAR: Regular rate and rhythm without murmurs, gallops, or rubs. RESPIRATORY: Vented poor inspiratory effort bilaterally. GASTROINTESTINAL: Abdomen soft, non-tender, nondistended. EXTREMITIES: No cyanosis, or edema. NEUROLOGICAL: Sedated intubated Laboratory Laboratory Tests Test 09/29/16 09/29/16 09/29/16 11:10 11:30 12:55 White Blood Count 11.4 12.1 Red Blood Count 4.01 4.02 Hemoglobin 11.7 12.1 Hematocrit 36.2 36.2 Mean Corpuscular Volume 90.1 90.2 Mean Corpuscular Hemoglobin 29.2 30.2 Mean Corpuscular Hemoglobin 32.4 33.4 Concent Red Cell Distribution Width 14.0 13.8 Platelet Count 287 274 Mean Platelet Volume 10.5 10.9 Neutrophils (%) (Auto) 76.3 Lymphocytes (%) (Auto) 15.2 Monocytes (%) (Auto) 7.5 Eosinophils (%) (Auto) 0.4 Basophils (%) (Auto) 0.6 Neutrophils # (Auto) 8.7 Lymphocytes # (Auto) 1.7 Monocytes # (Auto) 0.9 Eosinophils # (Auto) 0.0 Basophils # (Auto) 0.1 CBC Comment DIFF FINAL Differential Comment Prothrombin Time 10.8 Prothromb Time International 1.0 Ratio Urine Color YELLOW Urine Turbidity CLEAR Urine pH 6.0 Urine Specific [place] 1.010 Urine Protein 30 Urine Glucose (UA) NEG Urine Ketones NEG Urine Occult Blood NEG Urine Nitrite NEG Urine Bilirubin NEG Urine Urobilinogen LESS THAN 2.0 Urine Leukocyte Esterase NEG Urine RBC LESS THAN 1 Urine WBC 1 Urine Mucus FEW Microscopic Urinalysis Comment CULT NOT INDICATED Sodium Level 131 Potassium Level 4.7 Chloride Level 96 Carbon Dioxide Level 24.8 Anion Gap 10 Blood Urea Nitrogen 22 Creatinine 1.58 Estimat Glomerular Filtration 31 Rate Random Glucose 249 Lactic Acid Level 3.1 Calcium Level 8.9 Magnesium Level 2.2 Total Creatine Kinase 130 Creatine Kinase MB 3.0 Troponin I 0.84 B-Type Natriuretic Peptide 476 Blood Gas Puncture Site RT RADIAL Blood Gas Patient Temperature 98.6 Blood Gas HCO3 20 Blood Gas Base Excess -5.2 Blood Gas Oxygen Saturation 96 Arterial Blood pH 7.32 Arterial Blood Partial 40 Pressure CO2 Arterial Blood Partial 352 Pressure O2 Arterial Blood Oxygen Content 15.7 Arterial Blood 0.8 Carboxyhemoglobin Arterial Blood Methemoglobin 1.5 Blood Gas Hemoglobin 11.0 Oxygen Delivery Device VENTILATOR Blood Gas Ventilator Setting AC/14/500/+5 Blood Gas Inspired Oxygen 100 Activated Partial 32.2 Thromboplast Time Date/Time Procedure Status Source Growth 09/29/16 17:20 Gram Stain Received Sputum Endotracheal Pending 09/29/16 17:20 Sputum Culture Received Sputum Endotracheal Pending 09/29/16 11:10 Aerobic Blood Culture Received Blood Peripheral Pending 09/29/16 11:10 Anaerobic Blood Culture Received Blood Peripheral Pending Result Diagram: 09/29/16 1255 09/29/16 1110 Imaging Last Impressions Chest X-Ray 09/29/16 1059 Signed Impressions: Service Date/Time: September 11:07 - CONCLUSION: 1. ET tube and NG tube are in good position. 2. No pneumothorax. 3. Hyperaeration bilaterally with chronic interstitial changes characteristic of COPD. 4. No acute pulmonary infiltrates. Prakash Diane MD Assessment and Plan Problem List: (1) Cardiogenic shock Assessment and Plan: Acute respiratory failure in the setting of worsening LV systolic function, diffuse LV hypokinesis on 2Decho and new Q waves in EKG. Seems that she had an WI > 24hrs ago. She did not complaint of chest pain. Remains hemodynamically stable off pressor. Family has decided to make patient DNR. Thus for now will continue conservative therapy. (2) Respiratory failure (3) Tricuspid regurgitation (4) COPD (chronic obstructive pulmonary disease) Problem Qualifiers (1) Respiratory failure: Qualified Code: J96.01 - Acute respiratory failure with hypoxia (2) Tricuspid regurgitation: Qualified Code: I36.1 - Non-rheumatic tricuspid valve insufficiency (3) COPD (chronic obstructive pulmonary disease): Horacio Acuna MD Sep 29, 2016 18:30
[2016-09-29 18:32] LABS: BLOOD GAS BASE EXCESS -9.9 mmol/L (-2-2); BLOOD GAS CARBOXYHEMOGLOBIN 0.6 % (0-4); BLOOD GAS HCO3 18 mmol/L (22-26); BLOOD GAS METHEMOGLOBIN 1.2 % (0-2); BLOOD GAS O2 HGB SATURATION 97 % (90-100); BLOOD GAS OXYGEN CONTENT 15.8 Vol % (12.0-20.0); BLOOD GAS PCO2 54 mmHg (38-42); BLOOD GAS PO2 247 mmHg (61-120); BLOOD GAS TOTAL HGB 11.2 G/DL (12.0-16.0); TEMP CORR TO 98.6
[2016-09-29 18:33] LABS: CRITICAL VALUE YES; OXYGEN DEVICE VENTILATOR
[2016-09-29 18:35] LABS: DRAW SITE RT RADIAL; FIO2 100 %; NUMBER OF ARTERIAL PUNCTURES 1; STAT NO; ULNAR PULSE PRESENT
[2016-09-29] MEDS ORDERED: ALBUMIN HUMAN 5% 25 GM/500 ML BOTTLE IV ONE (18:45)
[2016-09-29] MEDS ORDERED: SODIUM BICARBONATE 8.4% INJ 50 MEQ/50 ML SYR IV PUSH ONE (18:45)
[2016-09-29] MEDS ORDERED: GELATIN 12 MM/7 MM FOAM ONE ×2 (18:56→20:28)
[2016-09-29 21:12] LABS: APTT (PATIENT) 57.1 SEC (24.3-30.1)
[2016-09-30] VITALS (19 sets, daily range): BP systolic 86–106; BP diastolic 50–68; PULSE 69–85; RESP 18–24; TEMP 98.9–99.9; O2SAT 91–100
[2016-09-30] MEDS: SODIUM CHLOR 0.9% 1000 ML INJ 1,000 ML IV SCH ×3 (00:07→20:04)
[2016-09-30] MEDS: PIPERACIL-TAZO 3.375 GM PREMIX 50 ML IV SCH ×3 (00:07→17:24)
[2016-09-30] MEDS: INSULIN NovoLIN REGULAR SUPPLEMENTAL SCALE SQ SCH ×4 (02:00→20:00)
[2016-09-30 02:37] LABS: AUTOMATED NEUTROPHIL # 8.6 TH/MM3 (1.8-7.7); BASOPHIL % 0.1 % (0.0-2.0); HEMO FLAGS DIFF FINAL; LYMPH % 4.3 % (9.0-44.0); LYMPHOCYTE # 0.4 TH/MM3 (1.0-4.8); MEAN CORPUSCULAR HEMOGLOBIN 29.7 PG (27.0-34.0); MONO % 4.2 % (0.0-8.0); NEUT % 91.4 % (16.0-70.0); PLATELET COUNT 230 TH/MM3 (150-450); RED BLOOD COUNT 3.22 MIL/MM3 (4.00-5.30); RED CELL DISTRIBUTION WIDTH 13.7 % (11.6-17.2); WHITE BLOOD COUNT 9.4 TH/MM3 (4.0-11.0)
[2016-09-30 03:09] LABS: BICARBONATE 20.3 MEQ/L (21.0-32.0); MAGNESIUM 1.8 MG/DL (1.5-2.5)
[2016-09-30 03:22] LABS: CALCIUM-PROTEIN CORRECTED 7.9 MG/DL (8.5-10.1)
[2016-09-30] MEDS: RESP: ALBUTEROL 2.5 MG/IPRATROPIUM 0.5 MG NEB (SCH) INH ×3 (03:37→20:16)
[2016-09-30] MEDS: fentaNYL DRIP 250 ML IV SCH ×2 (03:52→13:23)
[2016-09-30] MEDS: CHLORHEXIDINE GLUCONATE 2 % 1 PACK (2 CLOTHS) TOP SCH (04:00)
[2016-09-30 05:06] LABS: APTT (PATIENT) 111.6 SEC (24.3-30.1)
[2016-09-30] MEDS: methylPREDNISolone SOD SUCC 40 MG/1 ML VIAL IV PUSH SCH ×3 (05:15→20:47)
[2016-09-30 09:15] LABS: APTT (PATIENT) 50.8 SEC (24.3-30.1)
[2016-09-30] MEDS: PANTOPRAZOLE SODIUM 40 MG VIAL IV SCH (09:57)
[2016-09-30] MEDS: ASPIRIN EC 81 MG TABEC PO SCH (09:57)
--- NOTE | 2016-09-30 10:18 | HHI.CCPN ---
Subjective Remarks/Hospital Course Patient is 85 years with hx COPD, active smoker, HTN, hyperlipidemia who presented to [facility] ED via EMS as a possible STEMI alert. According to the daughter the patient complained of chest congestion and cough on Monday and she was started on a Z-Galindo by her primary care physician. In the ED she was in severe respiratory distress and she was found to have a saturation of 84% on 4 liters in addition she was tachycardiac and had hand had a rectal temperature of 100.1. She was given bronchodilator treatment in route without any significant improvements. In addition she received Solu-Medrol 125 mg IV push. The patient was subsequently intubated with etomidate, succinylcholine of Versed and placed on full mechanical ventilation. She was also started on a Diprivan for sedation. Post intubation the patient became hypotensive and was started on Levophed at five mics. She was given 2 liters of crystalloids in the ED. EKG in the ED showed anterior septal of myocardial infarction and sinus tachycardia. Stat echo was performed in the ED which showed cardiomyopathy with EF of 25-30% and diffuse hypokinesis and hypokinesis of the anterior septal and apical myocardium. The patient was seen by Dr. Pena from cardiology service and was started on heparin infusion per [place] protocol. Normal and the family is still thinking about cardiac catheterization. Her laboratory data significant for mild elevated troponin at 0.84 with a total CK 130. Also she had also she has elevated lactic acid level at 3.1. Chest x-ray In the ED showed ET tube above the sara, COPD changes with a right with chronic interstitial changes. In the in the ED. She received vancomycin, Zosyn, azithromycin has scheduled to receive aspirin. 09/30 Patient is intubated and sedated with Fentanyl. On Levophed 3 mics and Heparin drip. T:99.9 rectally Objective Vital Signs Date Time Temp Pulse Resp B/P Pulse Ox O2 Delivery O2 Flow Rate FiO2 09/30/16 09:02 96 Ventilator 50 09/30/16 08:00 74 09/30/16 08:00 99.1 18 86/57 09/29/16 12:07 4.00 Intake and Output 09/29/16 09/29/16 09/30/16 08:00 16:00 00:00 Intake Total 3500 ml 1011 ml Output Total 600 ml 250 ml Balance 2900 ml 761 ml Result Diagram: 09/30/16 0219 09/30/16 0219 Other Results Laboratory Tests Test 09/29/16 09/29/16 09/29/16 09/29/16 11:10 11:30 12:55 17:00 White Blood Count 11.4 TH/MM3 12.1 TH/MM3 Red Blood Count 4.01 MIL/MM3 4.02 MIL/MM3 Hemoglobin 11.7 GM/DL 12.1 GM/DL Hematocrit 36.2 % 36.2 % Mean Corpuscular Volume 90.1 FL 90.2 FL Mean Corpuscular Hemoglobin 29.2 PG 30.2 PG Mean Corpuscular Hemoglobin 32.4 % 33.4 % Concent Red Cell Distribution Width 14.0 % 13.8 % Platelet Count 287 TH/MM3 274 TH/MM3 Mean Platelet Volume 10.5 FL 10.9 FL Neutrophils (%) (Auto) 76.3 % Lymphocytes (%) (Auto) 15.2 % Monocytes (%) (Auto) 7.5 % Eosinophils (%) (Auto) 0.4 % Basophils (%) (Auto) 0.6 % Neutrophils # (Auto) 8.7 TH/MM3 Lymphocytes # (Auto) 1.7 TH/MM3 Monocytes # (Auto) 0.9 TH/MM3 Eosinophils # (Auto) 0.0 TH/MM3 Basophils # (Auto) 0.1 TH/MM3 CBC Comment DIFF FINAL Differential Comment Prothrombin Time 10.8 SEC Prothromb Time International 1.0 RATIO Ratio Urine Color YELLOW Urine Turbidity CLEAR Urine pH 6.0 Urine Specific [place] 1.010 Urine Protein 30 mg/dL Urine Glucose (UA) NEG mg/dL Urine Ketones NEG mg/dL Urine Occult Blood NEG Urine Nitrite NEG Urine Bilirubin NEG Urine Urobilinogen LESS THAN 2.0 MG/DL Urine Leukocyte Esterase NEG Urine RBC LESS THAN 1 /hpf Urine WBC 1 /hpf Urine Mucus FEW /lpf Microscopic Urinalysis Comment CULT NOT INDICATED Sodium Level 131 MEQ/L Potassium Level 4.7 MEQ/L Chloride Level 96 MEQ/L Carbon Dioxide Level 24.8 MEQ/L Anion Gap 10 MEQ/L Blood Urea Nitrogen 22 MG/DL Creatinine 1.58 MG/DL Estimat Glomerular Filtration 31 ML/MIN Rate Random Glucose 249 MG/DL Lactic Acid Level 3.1 mmol/L Calcium Level 8.9 MG/DL Magnesium Level 2.2 MG/DL Total Creatine Kinase 130 U/L Creatine Kinase MB 3.0 NG/ML Troponin I 0.84 NG/ML B-Type Natriuretic Peptide 476 PG/ML Blood Gas Puncture Site RT RADIAL Blood Gas Patient Temperature 98.6 Blood Gas HCO3 20 mmol/L Blood Gas Base Excess -5.2 mmol/L Blood Gas Oxygen Saturation 96 % Arterial Blood pH 7.32 Arterial Blood Partial 40 mmHg Pressure CO2 Arterial Blood Partial 352 mmHG Pressure O2 Arterial Blood Oxygen Content 15.7 Vol % Arterial Blood 0.8 % Carboxyhemoglobin Arterial Blood Methemoglobin 1.5 % Blood Gas Hemoglobin 11.0 G/DL Oxygen Delivery Device VENTILATOR Blood Gas Ventilator Setting AC/14/500/+5 Blood Gas Inspired Oxygen 100 % Activated Partial 32.2 SEC Thromboplast Time Nasal Screen MRSA (PCR) NEGATIVE Test 09/29/16 09/29/16 09/30/16 09/30/16 18:20 20:37 02:19 04:00 Blood Gas Puncture Site RT RADIAL Blood Gas Patient Temperature 98.6 Blood Gas HCO3 18 mmol/L Blood Gas Base Excess -9.9 mmol/L Blood Gas Oxygen Saturation 97 % Arterial Blood pH 7.14 Arterial Blood Partial 54 mmHg Pressure CO2 Arterial Blood Partial 247 mmHg Pressure O2 Arterial Blood Oxygen Content 15.8 Vol % Arterial Blood 0.6 % Carboxyhemoglobin Arterial Blood Methemoglobin 1.2 % Blood Gas Hemoglobin 11.2 G/DL Oxygen Delivery Device VENTILATOR Blood Gas Ventilator Setting SEE NOTE Blood Gas Inspired Oxygen 100 % Activated Partial 57.1 SEC 111.6 SEC Thromboplast Time Troponin I 5.10 NG/ML 6.72 NG/ML White Blood Count 9.4 TH/MM3 Red Blood Count 3.22 MIL/MM3 Hemoglobin 9.6 GM/DL Hematocrit 29.0 % Mean Corpuscular Volume 90.0 FL Mean Corpuscular Hemoglobin 29.7 PG Mean Corpuscular Hemoglobin 33.0 % Concent Red Cell Distribution Width 13.7 % Platelet Count 230 TH/MM3 Mean Platelet Volume 9.5 FL Neutrophils (%) (Auto) 91.4 % Lymphocytes (%) (Auto) 4.3 % Monocytes (%) (Auto) 4.2 % Eosinophils (%) (Auto) 0.0 % Basophils (%) (Auto) 0.1 % Neutrophils # (Auto) 8.6 TH/MM3 Lymphocytes # (Auto) 0.4 TH/MM3 Monocytes # (Auto) 0.4 TH/MM3 Eosinophils # (Auto) 0.0 TH/MM3 Basophils # (Auto) 0.0 TH/MM3 CBC Comment DIFF FINAL Differential Comment Sodium Level 138 MEQ/L Potassium Level 5.0 MEQ/L Chloride Level 107 MEQ/L Carbon Dioxide Level 20.3 MEQ/L Anion Gap 11 MEQ/L Blood Urea Nitrogen 34 MG/DL Creatinine 2.11 MG/DL Estimat Glomerular Filtration 22 ML/MIN Rate Random Glucose 153 MG/DL Calcium Level 7.0 MG/DL Protein Corrected Calcium 7.9 MG/DL Magnesium Level 1.8 MG/DL Total Protein 5.3 GM/DL Test 09/30/16 07:45 Activated Partial 50.8 SEC Thromboplast Time Imaging Last Impressions Chest X-Ray 09/29/16 1059 Signed Impressions: Service Date/Time: , September 29, 2016 11:07 - CONCLUSION: 1. ET tube and NG tube are in good position. 2. No pneumothorax. 3. Hyperaeration bilaterally with chronic interstitial changes characteristic of COPD. 4. No acute pulmonary infiltrates. Prakash Diane MD Objective Remarks GENERAL: Patient is 85 yo critically ill intubated, sedated and on Levophed SKIN: Warm and dry. HEAD: Normocephalic. EYES: No scleral icterus. No injection or drainage. NECK: Supple, trachea midline. No JVD or lymphadenopathy. Orally intubated CARDIOVASCULAR: Regular rate and rhythm without murmurs, gallops, or rubs. RESPIRATORY: Breath sounds equal bilaterally. No accessory muscle use. GASTROINTESTINAL: Abdomen soft, non-tender, nondistended. MUSCULOSKELETAL: No cyanosis, or edema. BACK: Nontender without obvious deformity. No CVA tenderness. Neuro: Sedated, intubated. A/P Assessment and Plan 1. VDRF 2. Shock, likely cardiogenic 3. Acute coronary syndrome. 4. cardiomyopathy with EF of 25-30%. 5. Chronic obstructive pulmonary disease exacerbation. 6. Lactic acidemia. 7. Mild acute kidney injury. 8. Hyponatremia. 9. Hyperglycemia. 10. Hypertension. 11. Hyperlipidemia. Plan Neuro: On fentanyl infusion for sedation and vent synchrony. Daily sedation vacation and monitor neuro status closely. Pum: Continue with vent support and maintain sats above 92%. Bronchodilators, Solu-Medrol 40 mg IV q. 8. ICU vent bundle, check ABG CV: Continue with Levophed maintain MAP > 65 mmHg. Serial lactic acid monitoring. Continue with aspirin and heparin drip per [place] protocol. Echo showed EF of 25-30% with diffuse hypokinesis and hypokinesis of the anterior septal and apical myocardium. Cards- Dr. Pena. : Monitor renal function Is and Os and avoid nephrotoxins. Decrease IVF NS @50ml/hr, Cr: 2.1 from 1.58. Check renal US. GI: Start TF- Nepro with goal rate 40ml/hr, on Protonix 40 mg IV daily for GI prophylaxis. ID: Given vancomycin, Zosyn and azithromycin in ED. Continue Zosyn empirically. and monitor for signs of infections( fever and WBC) Follow up on blood cultures. CXR Post intubation showed no acute pulmonary infiltrates and urinalysis negative for UTI Endo: SSI with Accu-Chek for glycemic control. Heme: Monitor CBC, Coags- on heparin drip per [place] protocol. GI with Protonix 40 mg daily and DVT prophylaxis with SCDs and heparin drip. Palliative care on case- Alternative code. Lines: Right femoral line placed 09/30 Discussed with family and updated them on her condition. Prognosis guarded given multiorgan injury. CCT 30 mins Jason Herrera MD Sep 30, 2016 10:18
[2016-09-30 11:29] LABS: BLOOD GAS BASE EXCESS -12.5 mmol/L (-2-2); BLOOD GAS CARBOXYHEMOGLOBIN 0.7 % (0-4); BLOOD GAS HCO3 15 mmol/L (22-26); BLOOD GAS METHEMOGLOBIN 1.2 % (0-2); BLOOD GAS O2 HGB SATURATION 89 % (90-100); BLOOD GAS OXYGEN CONTENT 13.1 Vol % (12.0-20.0); BLOOD GAS PCO2 48 mmHg (38-42); BLOOD GAS PO2 73 mmHg (61-120); BLOOD GAS TOTAL HGB 10.5 G/DL (12.0-16.0); TEMP CORR TO 98.6
[2016-09-30 11:30] LABS: CRITICAL VALUE YES; DRAW SITE RT RADIAL; FIO2 50 %; NUMBER OF ARTERIAL PUNCTURES 1; OXYGEN DEVICE VENTILATOR; STAT NO; ULNAR PULSE PRESENT
[2016-09-30] MEDS ORDERED: SODIUM BICARBONATE 8.4% INJ 50 MEQ/50 ML SYR IV PUSH ONE ×2 (11:45→18:15)
[2016-09-30] MEDS ORDERED: CALCIUM GLUCONATE INJ 1 GM in SODIUM CHLORIDE 0.9% INJ 100 ML IV ONE (12:00)
[2016-09-30] MEDS: PROPOFOL 1000 MG/100 ML INJ 100 ML IV SCH (12:41)
--- NOTE | 2016-09-30 13:37 | EKG ---
Date Performed: 09/29/2016 Time Performed: 13:40:27 PTAGE: 85 years EKG: Sinus rhythm WITH SINUS ARRHYTHMIA BORDERLINE RIGHT AXIS DEVIATION LOW QRS VOLTAGE IN EXTREMITY LEADS POSSIBLE AN TERIOR MYOCARDIAL INFARCTION ABNORMAL ECG Since PREVIOUS TRACING , no significant change noted PREVIOUS TRACING 09/29/2016 10.49.31 DOCTOR: Hans De León Interpretating Date/Time 09/30/2016 13:32:54
--- NOTE | 2016-09-30 14:11 | EKG ---
Date Performed: 09/29/2016 Time Performed: 10:34:31 PTAGE: 85 years EKG: SINUS TACHYCARDIA, POSSIBLE ATRIAL FLUTTER LOW QRS VOLTAGE IN EXTREMITY LEADS ANTEROSEPTAL MYOCARDIAL INFARCTION Compared to PREVIOUS TRACING , what appears to be atrial flutter is now present. PREVIOUS TRACIN 12/14/2012 14.23.36 DOCTOR: Hans De León Interpretating Date/Time 09/30/2016 14:11:08
--- NOTE | 2016-09-30 14:13 | EKG ---
Date Performed: 09/29/2016 Time Performed: 10:49:31 PTAGE: 85 years EKG: SINUS TACHYCARDIA POSSIBLE LEFT ATRIAL ENLARGEMENT LOW QRS VOLTAGE IN EXTREMITY LEADS ANTER OSEPTAL MYOCARDIAL INFARCTION Compared to previous tracing, Sinus rhythm has replaced the previous rhythm. ABNORMAL ECG PREVIOUS TRACING : 09/29/2016 10.34.31 DOCTOR: Hans De León Interpretating Date/Time 09/30/2016 14:11:42
[2016-09-30 14:43] LABS: APTT (PATIENT) 51.6 SEC (24.3-30.1)
--- NOTE | 2016-09-30 15:08 | HHI.HCPN ---
Reason for visit a. To assist with evaluation and management of symptoms including:dyspnea b. To assist medical decision maker(s) with: better understanding of current medical conditions; weighing benefits/burdens of medical treatment options; making medical treatment decisions. Subjective/Interval History Pt remains intubated and sedated. Appears much more comfortable than yesterday. FIO2 of 60%. Kidneys a little worse. Elevated troponins. Family/friend interactions Spoke with pt nephew and answered questions. I also spoke with daughter Charlene Norton [phone] and Luz Davies [phone] over the phone. Charlene ask many question about what if pt cannot be weaned off trach, questions about transition to comfort and what that process is like, risk of another [place]? Peg and trach was discussed and she state pt would not want peg and trach. Charlene ask me to call Swathi who is on her way and convey these type of information to her. I spoke with Swathi son who is amenable. I spoke with Swathi, and she was updated on pt's condition. Spoke to her about her risk for [place], and also peg and trach. Swathi also said pt would not have want peg and trach. She declined me going any further regarding the process of transitioning to comfort. Both of pt's Children wants to give pt through the weekend to see where she is at. Objective Vital Signs Date Time Temp Pulse Resp B/P Pulse Ox O2 Delivery O2 Flow Rate FiO2 09/30/16 14:00 69 09/30/16 13:29 98 60 09/30/16 12:00 85 09/30/16 12:00 98.9 85 20 97/61 98 09/30/16 12:00 50 09/30/16 10:00 50 09/30/16 10:00 71 09/30/16 09:02 96 Ventilator 50 09/30/16 09:02 96 50 09/30/16 08:00 60 09/30/16 08:00 74 09/30/16 08:00 99.1 74 18 86/57 95 09/30/16 08:00 60 09/30/16 06:00 71 09/30/16 06:00 60 09/30/16 04:12 96 55 09/30/16 04:00 99.9 77 18 95/59 93 09/30/16 04:00 55 09/30/16 04:00 77 09/30/16 03:35 60 09/30/16 02:00 78 09/30/16 02:00 70 09/30/16 01:31 97 70 09/30/16 01:27 70 09/30/16 00:00 99.6 83 18 106/68 100 09/30/16 00:00 100 09/30/16 00:00 83 09/29/16 22:16 99 80 09/29/16 22:00 80 09/29/16 22:00 100 09/29/16 20:25 97 80 09/29/16 20:00 99.1 78 18 90/58 96 09/29/16 20:00 78 09/29/16 20:00 100 09/29/16 18:47 97 80 09/29/16 18:12 100 09/29/16 18:12 79 09/29/16 17:25 97 100 09/29/16 16:10 100 100 09/29/16 16:00 96.0 76 19 86/53 97 09/29/16 15:44 97 100 09/29/16 15:32 92 18 126/87 97 Ventilator 09/29/16 15:01 94 18 154/96 98 Intake & Output 09/30/16 09/30/16 07:00 19:00 Intake Total 4110 ml 1310 ml Output Total 450 ml 60 ml Balance 3660 ml 1250 ml Intake Oral 0 ml IV Total 4110 ml 1310 ml Output Urine Total 450 ml 60 ml Stool Total 0 ml # Bowel Movements 0 0 Physical Exam CONSTITUTIONAL/GENERAL: This is a thin elderly lady intubated, open eyes, confused, intubated on ventilator SKIN: No jaundice, rashes, or lesions. Ecchymoses on upper extremities. No wounds seen anteriorly. Skin temperature appropriate. Not diaphoretic. HEAD: Atraumatic. Normocephalic. EYES: Extraocular motions intact. No scleral icterus. ENT: Hearing grossly normal. Nose without bleeding or purulent drainage. Throat ET tube in place. NECK: Trachea midline. Supple, nontender. No palpable thyroid enlargement or nodularity. CARDIOVASCULAR: Regular rate and rhythm without murmurs, gallops, or rubs. RESPIRATORY/CHEST: decrease breath sound bilaterally. GASTROINTESTINAL: Abdomen soft, non-tender, nondistended. GENITOURINARY: Without palpable bladder distension. Phelps catheter in place. MUSCULOSKELETAL: Extremities without clubbing, cyanosis, or edema. Prominent ecchymosis on the shins of pt's lower ext bilaterally. LYMPHATICS: No palpable cervical or supraclavicular adenopathy. NEUROLOGICAL: Sleeping comfortably on my visit. Diagnostic Tests Laboratory Laboratory Tests Test 09/29/16 09/29/16 09/29/16 09/29/16 11:10 11:30 12:55 17:00 White Blood Count 11.4 TH/MM3 12.1 TH/MM3 (4.0-11.0) (4.0-11.0) Red Blood Count 4.01 MIL/MM3 4.02 MIL/MM3 (4.00-5.30) (4.00-5.30) Hemoglobin 11.7 GM/DL 12.1 GM/DL (11.6-15.3) (11.6-15.3) Hematocrit 36.2 % 36.2 % (35.0-46.0) (35.0-46.0) Mean Corpuscular Volume 90.1 FL 90.2 FL (80.0-100.0) (80.0-100.0) Mean Corpuscular Hemoglobin 29.2 PG 30.2 PG (27.0-34.0) (27.0-34.0) Mean Corpuscular Hemoglobin 32.4 % 33.4 % Concent (32.0-36.0) (32.0-36.0) Red Cell Distribution Width 14.0 % 13.8 % (11.6-17.2) (11.6-17.2) Platelet Count 287 TH/MM3 274 TH/MM3 (150-450) (150-450) Mean Platelet Volume 10.5 FL 10.9 FL (7.0-11.0) (7.0-11.0) Neutrophils (%) (Auto) 76.3 % (16.0-70.0) Lymphocytes (%) (Auto) 15.2 % (9.0-44.0) Monocytes (%) (Auto) 7.5 % (0.0-8.0) Eosinophils (%) (Auto) 0.4 % (0.0-4.0) Basophils (%) (Auto) 0.6 % (0.0-2.0) Neutrophils # (Auto) 8.7 TH/MM3 (1.8-7.7) Lymphocytes # (Auto) 1.7 TH/MM3 (1.0-4.8) Monocytes # (Auto) 0.9 TH/MM3 (0-0.9) Eosinophils # (Auto) 0.0 TH/MM3 (0-0.4) Basophils # (Auto) 0.1 TH/MM3 (0-0.2) CBC Comment DIFF FINAL Differential Comment Prothrombin Time 10.8 SEC (9.8-11.6) Prothromb Time International 1.0 RATIO Ratio Urine Color YELLOW (YELLW/STRAW) Urine Turbidity CLEAR (CLEAR) Urine pH 6.0 (5.0-8.5) Urine Specific [place] 1.010 (1.002-1.035) Urine Protein 30 mg/dL (NEG-TRACE) Urine Glucose (UA) NEG mg/dL (NEG) Urine Ketones NEG mg/dL (NEG) Urine Occult Blood NEG (NEG) Urine Nitrite NEG (NEG) Urine Bilirubin NEG (NEG) Urine Urobilinogen LESS THAN 2.0 MG/DL (LESS THAN 2.0) Urine Leukocyte Esterase NEG (NEG) Urine RBC LESS THAN 1 /hpf (0-3) Urine WBC 1 /hpf (0-5) Urine Mucus FEW /lpf (OCC) Microscopic Urinalysis Comment CULT NOT INDICATED Sodium Level 131 MEQ/L (136-145) Potassium Level 4.7 MEQ/L (3.5-5.1) Chloride Level 96 MEQ/L (98-107) Carbon Dioxide Level 24.8 MEQ/L (21.0-32.0) Anion Gap 10 MEQ/L (5-15) Blood Urea Nitrogen 22 MG/DL (7-18) Creatinine 1.58 MG/DL (0.50-1.00) Estimat Glomerular Filtration 31 ML/MIN (>89) Rate Random Glucose 249 MG/DL (74-106) Lactic Acid Level 3.1 mmol/L (0.4-2.0) Calcium Level 8.9 MG/DL (8.5-10.1) Magnesium Level 2.2 MG/DL (1.5-2.5) Total Creatine Kinase 130 U/L (26-192) Creatine Kinase MB 3.0 NG/ML (0.5-3.6) Troponin I 0.84 NG/ML (0.02-0.05) B-Type Natriuretic Peptide 476 PG/ML (0-100) Blood Gas Puncture Site RT RADIAL Blood Gas Patient Temperature 98.6 Blood Gas HCO3 20 mmol/L (22-26) Blood Gas Base Excess -5.2 mmol/L (-2-2) Blood Gas Oxygen Saturation 96 % (90-100) Arterial Blood pH 7.32 (7.380-7.420) Arterial Blood Partial 40 mmHg (38-42) Pressure CO2 Arterial Blood Partial 352 mmHG Pressure O2 (61-120) Arterial Blood Oxygen Content 15.7 Vol % (12.0-20.0) Arterial Blood 0.8 % (0-4) Carboxyhemoglobin Arterial Blood Methemoglobin 1.5 % (0-2) Blood Gas Hemoglobin 11.0 G/DL (12.0-16.0) Oxygen Delivery Device VENTILATOR Blood Gas Ventilator Setting AC/14/500/+5 Blood Gas Inspired Oxygen 100 % Activated Partial 32.2 SEC Thromboplast Time (24.3-30.1) Nasal Screen MRSA (PCR) NEGATIVE (NEGATIVE) Test 09/29/16 09/29/16 09/30/16 09/30/16 18:20 20:37 02:19 04:00 Blood Gas Puncture Site RT RADIAL Blood Gas Patient Temperature 98.6 Blood Gas HCO3 18 mmol/L (22-26) Blood Gas Base Excess -9.9 mmol/L (-2-2) Blood Gas Oxygen Saturation 97 % (90-100) Arterial Blood pH 7.14 (7.380-7.420) Arterial Blood Partial 54 mmHg (38-42) Pressure CO2 Arterial Blood Partial 247 mmHg Pressure O2 (61-120) Arterial Blood Oxygen Content 15.8 Vol % (12.0-20.0) Arterial Blood 0.6 % (0-4) Carboxyhemoglobin Arterial Blood Methemoglobin 1.2 % (0-2) Blood Gas Hemoglobin 11.2 G/DL (12.0-16.0) Oxygen Delivery Device VENTILATOR Blood Gas Ventilator Setting SEE NOTE Blood Gas Inspired Oxygen 100 % Activated Partial 57.1 SEC 111.6 SEC Thromboplast Time (24.3-30.1) (24.3-30.1) Troponin I 5.10 NG/ML 6.72 NG/ML (0.02-0.05) (0.02-0.05) White Blood Count 9.4 TH/MM3 (4.0-11.0) Red Blood Count 3.22 MIL/MM3 (4.00-5.30) Hemoglobin 9.6 GM/DL (11.6-15.3) Hematocrit 29.0 % (35.0-46.0) Mean Corpuscular Volume 90.0 FL (80.0-100.0) Mean Corpuscular Hemoglobin 29.7 PG (27.0-34.0) Mean Corpuscular Hemoglobin 33.0 % Concent (32.0-36.0) Red Cell Distribution Width 13.7 % (11.6-17.2) Platelet Count 230 TH/MM3 (150-450) Mean Platelet Volume 9.5 FL (7.0-11.0) Neutrophils (%) (Auto) 91.4 % (16.0-70.0) Lymphocytes (%) (Auto) 4.3 % (9.0-44.0) Monocytes (%) (Auto) 4.2 % (0.0-8.0) Eosinophils (%) (Auto) 0.0 % (0.0-4.0) Basophils (%) (Auto) 0.1 % (0.0-2.0) Neutrophils # (Auto) 8.6 TH/MM3 (1.8-7.7) Lymphocytes # (Auto) 0.4 TH/MM3 (1.0-4.8) Monocytes # (Auto) 0.4 TH/MM3 (0-0.9) Eosinophils # (Auto) 0.0 TH/MM3 (0-0.4) Basophils # (Auto) 0.0 TH/MM3 (0-0.2) CBC Comment DIFF FINAL Differential Comment Sodium Level 138 MEQ/L (136-145) Potassium Level 5.0 MEQ/L (3.5-5.1) Chloride Level 107 MEQ/L (98-107) Carbon Dioxide Level 20.3 MEQ/L (21.0-32.0) Anion Gap 11 MEQ/L (5-15) Blood Urea Nitrogen 34 MG/DL (7-18) Creatinine 2.11 MG/DL (0.50-1.00) Estimat Glomerular Filtration 22 ML/MIN (>89) Rate Random Glucose 153 MG/DL (74-106) Calcium Level 7.0 MG/DL (8.5-10.1) Protein Corrected Calcium 7.9 MG/DL (8.5-10.1) Magnesium Level 1.8 MG/DL (1.5-2.5) Total Protein 5.3 GM/DL (6.4-8.2) Test 09/30/16 09/30/16 09/30/16 09/30/16 07:45 11:15 11:25 13:26 Activated Partial 50.8 SEC 51.6 SEC Thromboplast Time (24.3-30.1) (24.3-30.1) Blood Gas Puncture Site RT RADIAL Blood Gas Patient Temperature 98.6 Blood Gas HCO3 15 mmol/L (22-26) Blood Gas Base Excess -12.5 mmol/L (-2-2) Blood Gas Oxygen Saturation 89 % (90-100) Arterial Blood pH 7.13 (7.380-7.420) Arterial Blood Partial 48 mmHg (38-42) Pressure CO2 Arterial Blood Partial 73 mmHg Pressure O2 (61-120) Arterial Blood Oxygen Content 13.1 Vol % (12.0-20.0) Arterial Blood 0.7 % (0-4) Carboxyhemoglobin Arterial Blood Methemoglobin 1.2 % (0-2) Blood Gas Hemoglobin 10.5 G/DL (12.0-16.0) Oxygen Delivery Device VENTILATOR Blood Gas Ventilator Setting SEE NOTE Blood Gas Inspired Oxygen 50 % Lactic Acid Level 1.7 mmol/L (0.4-2.0) Result Diagram: 09/30/16 0219 09/30/16 0219 Microbiology Microbiology Date/Time Procedure Status Source Growth 09/29/16 11:10 Aerobic Blood Culture - Preliminary Resulted Blood Peripheral NO GROWTH IN 1 DAY 09/29/16 11:10 Anaerobic Blood Culture - Preliminary Resulted Blood Peripheral NO GROWTH IN 1 DAY 09/29/16 11:10 Aerobic Blood Culture - Preliminary Resulted Blood Peripheral NO GROWTH IN 1 DAY 09/29/16 11:10 Anaerobic Blood Culture - Preliminary Resulted Blood Peripheral NO GROWTH IN 1 DAY 09/29/16 17:20 Gram Stain - Final Resulted Sputum Endotracheal 09/29/16 17:20 Sputum Culture - Preliminary Resulted Gram Negative Chi 09/29/16 17:20 Cancelled Sputum Endotracheal Imaging Last Impressions Chest X-Ray 09/29/16 1059 Signed Impressions: Service Date/Time: September 11:07 - CONCLUSION: 1. ET tube and NG tube are in good position. 2. No pneumothorax. 3. Hyperaeration bilaterally with chronic interstitial changes characteristic of COPD. 4. No acute pulmonary infiltrates. Prakash Diane MD Procedures Echo Assessment and Plan Disease Oriented Problem List: (1) Respiratory failure Comment: cardiogenic (2) Widespread acute Q wave ST elevation myocardial infarction (STEMI) Comment: echo show EF of 25-30%. Diffuse hypokinesis anterior septal and apical myocardium. (3) COPD (chronic obstructive pulmonary disease) (4) Cardiogenic shock (5) Kidney injury Symptom Scale: (1) Dyspnea 0-10 Scale: Unable to quantify Pertinent Non-Medical Issues Psychosocial: Spiritual: Legal: Ethical issues impacting care: Important Contacts Charlene Norton [phone] Swathi Davies [phone] Prognosis 85 year old with COPD, now with [place], and cardiogenic shock. Currently getting heparin bolus, on ventalator. Prognosis is guarded to poor at this time. Code Status: Alternative Code Plan == Code: alternate code. no to cpr or shock. Okay with ACLS drug, Intubation. Should the pt have another cardiac event, no shock or cpr. ==Goals: aggressive short of cpr and shock. family may transition if prognosis becomes poor. They want to reevaluate in the next 48 hours. Both daughters stated pt would not want peg or trach. Heaven Chang ask many question, and even about eol question and what the process of transition to comfort measures is like Swathi for the time being did not want me to go through what the process of transition to comfort is like. == Proxy:- Daughters. Charlene Norton and Sally Whyte. pt's son past away. == dyspnea- manage on the vent. no new med rec. == Palliative care will follow as clinical condition evolves. Attestation To help prompt me to consider important information that might be impacting today's encounter and assessment, information from prior notes written by myself or my colleagues may have been "brought forward" into today's note. My signature on this note, however, is an attestation that I personally performed the exam, history, and/or decision-making noted today, and, unless otherwise indicated, the interactions with patient, family, and staff as well as the review of records all occurred today. I also attest that the listed assessment and stated plan reflect my best clinical judgment today based on the combination of historical information, prior notes, and today's exam/ interactions. When time spent is documented, it refers only to time spent today by the signer, or if indicated, combined time spent today by collaborating physician/nurse practitioner. Fausto Bhat MD Sep 30, 2016 15:08
--- NOTE | 2016-09-30 15:41 | RADRPT ---
EXAM DATE/TIME: 09/30/2016 14:31 [facility] COMPARISON: No previous studies available for comparison. INDICATIONS : Acute kidney injury. MEDICAL HISTORY : Myocardial infarction. Hypercholesterolemia. Emphysema. Squamous cell carcinoma. HTN. COPD. Dyspnea. Lung nodule. GERD. Renal disease. SURGICAL HISTORY : Hysterectomy. Radiation therapy. ENCOUNTER: Initial ACUITY: 1 day PAIN SCORE: Nonresponsive. LOCATION: Bilateral flank MEASUREMENTS: RIGHT KIDNEY: 9.6 x 4.6 x 4.3 cm LEFT KIDNEY: 8.6 x 4.1 x 3.8 cm FINDINGS: Bilateral kidneys are lower limits of normal with mild echogenicity of cortex and well-maintained cor ticomedullary junctions with no evidence hydronephrosis or obstructive uropathy. The bladder is decom pressed with Phelps catheter in place. There is mild ascites around the liver and spleen in the right pleural effusion. CONCLUSION: Lower limits of acceptable normal size the kidneys with mild echogenicity to the cortex which would s uggest parenchymal disease. No evidence of obstruction or hydronephrosis. Phelps catheter in place in the urinary bladder. Ascitic fluid and right pleural effusion Maxim Pena MD on September 30, 2016 at 15:36 Board Certified Radiologist. This report was verified electronically.
[2016-09-30 15:46] LABS: BLOOD GAS CARBOXYHEMOGLOBIN 0.9 % (0-4); BLOOD GAS HCO3 17 mmol/L (22-26); BLOOD GAS METHEMOGLOBIN 1.3 % (0-2); BLOOD GAS O2 HGB SATURATION 95 % (90-100); BLOOD GAS OXYGEN CONTENT 13.6 Vol % (12.0-20.0); BLOOD GAS PCO2 42 mmHg (38-42); BLOOD GAS PO2 110 mmHg (61-120); BLOOD GAS TOTAL HGB 10.1 G/DL (12.0-16.0); TEMP CORR TO 98.6
[2016-09-30 15:47] LABS: CRITICAL VALUE YES; DRAW SITE RT RADIAL; FIO2 60 %; NUMBER OF ARTERIAL PUNCTURES 1; OXYGEN DEVICE VENTILATOR; STAT NO; ULNAR PULSE PRESENT
[2016-09-30 16:08] LABS: POTASSIUM 4.8 MEQ/L (3.5-5.1)
[2016-09-30 19:36] LABS: APTT (PATIENT) 42.9 SEC (24.3-30.1)
[2016-09-30 20:07] LABS: BLOOD GAS CARBOXYHEMOGLOBIN 0.9 % (0-4); BLOOD GAS HCO3 19 mmol/L (22-26); BLOOD GAS METHEMOGLOBIN 1.2 % (0-2); BLOOD GAS O2 HGB SATURATION 90 % (90-100); BLOOD GAS OXYGEN CONTENT 13.4 Vol % (12.0-20.0); BLOOD GAS PCO2 48 mmHg (38-42); BLOOD GAS PO2 76 mmHg (61-120); BLOOD GAS TOTAL HGB 10.6 G/DL (12.0-16.0); TEMP CORR TO 98.6
[2016-09-30 20:12] LABS: OXYGEN DEVICE VENTILATOR
[2016-09-30 20:13] LABS: DRAW SITE RT RADIAL; FIO2 60 %; NUMBER OF ARTERIAL PUNCTURES 1; STAT NO; ULNAR PULSE PRESENT; VENT SETTINGS PRVC/AC
[2016-09-30] MEDS: NOREPINEPHRINE 4 MG/D5W 250 ML IV SCH (20:46)
--- NOTE | 2016-09-30 22:24 | PD.CONS ---
HPI Service Nephrology Consult Requested By Dr. Herrera Reason for Consult [facility] Primary Care Physician Unknown History of Present Illness 85 year old white female with COPD, hypertension who had increasing shortness of breath requiring intubation, she was found to have AMI, and she was in Cardiogenic shick, her urine output has declined with rising creatinine, her daughter states she never had Kidney problems prior to this admission. Review of Systems ROS Limitations: Clinical Condition Past Family Social History Allergies: Coded Allergies: Codeine (Verified Allergy, Severe, 12/14/12) Lortab (Verified Allergy, Severe, 09/29/16) Percocet (Verified Allergy, Unknown, 09/29/16) Past Medical History COPD Hypertension Hyperlipidemia Tobacco use Past Surgical History Past Surgical History Hysterectomy Reported Medications Reported Meds & Active Scripts Active Reported Tramadol (Tramadol HCl) 50 Mg Tab 50 Mg PO Q4H PRN Lovastatin 40 Mg Tab 40 Mg PO DAILY Symbicort Inh (Budesonide/Formoterol Fumarate) 80-4.5 Mcg/Act Aero 1 Puff INH Q12HR Pantoprazole (Pantoprazole Sodium) 20 Mg Tab 20 Mg PO DAILY Mirtazapine 15 Mg Tab 15 Mg PO HS Furosemide 20 Mg Tab 20 Mg PO DAILY Buspirone (Buspirone HCl) 5 Mg Tab 5 Mg PO Atenolol 25 Mg Tab 25 Mg PO DAILY Amlodipine (Amlodipine Besylate) 2.5 Mg Tab 2.5 Mg PO DAILY Remeron 15 mg (Mirtazapine) 15 Mg Tab 15 Mg OR HS Ultram (Tramadol HCl) 50 Mg Tab 50 Mg PO Q6HPRN Symbicort (Budesonide/Formoterol Fumarate) 160 Mcg/4.5 Mcg Aer 2 Puff INH BID * SHAKE WELL BEFORE USE * Claritin 10 Mg Tab (Loratadine) 10 Mg Tab 10 Mg OR DAILYPRN Acetaminophen Er (Acetaminophen) 650 Mg Supp 650 Mg DE Q6HPRN Colace 100 Mg Cap (Docusate Sodium) 100 Mg Cap 100 Mg PO BID Proventil Conc Ud 0.5% (2.5 Mg/0.5 Ml) (Albuterol Sulfate) 2.5 Mg/0.5 Ml Inha 2.5 Mg INH Q4HPRN Benadryl 25 Mg Cap (Diphenhydramine Hcl) 25 Mg Cap 25 Mg OR Q6HPRN Lovenox (Enoxaparin Sodium) 30 Mg/0.3 Ml Inj 30 Mg SC DAILY Lovastatin 40 Mg Tab 40 Mg PO DAILY Nifedipine Er (Nifedipine) 90 Mg Tab 90 Mg PO DAILY Atenolol 25 Mg Tab 25 Mg PO DAILY Active Ordered Medications Current Medications Medications (Trade) Dose Ordered Sig/Marie Route Start Time Stop Time Status Last Admin IV Flush 2 ml 2 ml UNSCH PRN IVF 09/29/16 11:00 09/29/16 14:26 Propofol 100 ml @ 0 mls/hr TITRATE IV 09/29/16 11:15 09/30/16 12:41 (Heparin-D5W Inj) 250 ml @ 0 mls/hr TITRATE IV 09/29/16 12:45 09/29/16 14:12 (Protonix Inj) 40 mg DAILY IV 09/29/16 14:00 09/30/16 09:57 Miscellaneous Information 1 [id number] XX 09/29/16 14:00 (Chlorhexidine 2% Cloth) 3 pack Taper DAILY@04 TOP 09/30/16 04:00 09/26/17 03:59 09/30/16 04:00 (Chlorhexidine 2% Cloth) 3 pack UNSCH PRN TOP 09/29/16 14:00 (D50w (Vial) Inj) 25 ml UNSCH PRN IV PUSH 09/29/16 14:00 (Glucagon Inj) 1 mg UNSCH PRN OTHER 09/29/16 14:00 (NovoLIN R SUPPLEMENTAL SCALE) 1 Q6H SQ 09/29/16 14:00 09/29/16 15:42 (Ecotrin Ec) 81 mg DAILY PO 09/30/16 09:00 09/30/16 09:57 Methylprednisolone Sodium Succinate 40 mg 40 mg Q8HR IV PUSH 09/29/16 14:00 09/30/16 20:47 Fentanyl Citrate 250 ml @ 0 mls/hr TITRATE IV 09/29/16 14:15 09/30/16 13:23 Sodium Chloride 1,000 ml @ 50 mls/hr Q20H IV 09/29/16 15:00 09/30/16 09:57 Piperacillin Sod/ Tazobactam Sod 50 ml @ 100 mls/hr Q8H IV 09/29/16 16:00 09/30/16 17:24 (Levophed-Dextrose Drip) 250 ml @ 0 mls/hr TITRATE IV 09/30/16 06:00 09/30/16 20:46 Family History noncontributory Social History smoking cigarettes cut back to 1 cig a day per daughter Physical Exam Vital Signs Vital Signs Date Time Temp Pulse Resp B/P Pulse Ox O2 Delivery O2 Flow Rate FiO2 09/30/16 20:16 92 60 09/30/16 18:00 69 09/30/16 16:19 99 60 09/30/16 16:00 99.1 69 20 89/57 99 09/30/16 16:00 69 09/30/16 16:00 60 09/30/16 14:00 69 09/30/16 13:29 98 60 09/30/16 12:00 85 09/30/16 12:00 98.9 85 20 97/61 98 09/30/16 12:00 50 09/30/16 10:00 50 09/30/16 10:00 71 09/30/16 09:02 96 Ventilator 50 09/30/16 09:02 96 50 09/30/16 08:00 60 09/30/16 08:00 74 09/30/16 08:00 99.1 74 18 86/57 95 09/30/16 08:00 60 09/30/16 06:00 71 09/30/16 06:00 60 09/30/16 04:12 96 55 09/30/16 04:00 99.9 77 18 95/59 93 09/30/16 04:00 55 09/30/16 04:00 77 09/30/16 03:35 60 09/30/16 02:00 78 09/30/16 02:00 70 09/30/16 01:31 97 70 09/30/16 01:27 70 09/30/16 00:00 99.6 83 18 106/68 100 09/30/16 00:00 100 09/30/16 00:00 83 09/29/16 22:16 99 80 Physical Exam GENERAL: Well-nourished, well-developed sick, intubated patient. SKIN: Warm and dry. HEAD: Normocephalic. EYES: No scleral icterus. No injection or drainage. NECK: Supple, trachea midline. No JVD or lymphadenopathy. CARDIOVASCULAR: S1 S2 decreased in intensity RESPIRATORY: Breath sounds equal bilaterally. No accessory muscle use. GASTROINTESTINAL: Abdomen soft, non-tender, nondistended. EXTREMITIES: chronic skin color changes 1 plus edema. NEUROLOGICAL: Awake, alert, and oriented x 3. Non-focal. Laboratory Laboratory Tests Test 09/30/16 09/30/16 09/30/16 09/30/16 02:19 04:00 07:45 11:15 White Blood Count 9.4 Red Blood Count 3.22 Hemoglobin 9.6 Hematocrit 29.0 Mean Corpuscular Volume 90.0 Mean Corpuscular Hemoglobin 29.7 Mean Corpuscular Hemoglobin 33.0 Concent Red Cell Distribution Width 13.7 Platelet Count 230 Mean Platelet Volume 9.5 Neutrophils (%) (Auto) 91.4 Lymphocytes (%) (Auto) 4.3 Monocytes (%) (Auto) 4.2 Eosinophils (%) (Auto) 0.0 Basophils (%) (Auto) 0.1 Neutrophils # (Auto) 8.6 Lymphocytes # (Auto) 0.4 Monocytes # (Auto) 0.4 Eosinophils # (Auto) 0.0 Basophils # (Auto) 0.0 CBC Comment DIFF FINAL Differential Comment Sodium Level 138 Potassium Level 5.0 Chloride Level 107 Carbon Dioxide Level 20.3 Anion Gap 11 Blood Urea Nitrogen 34 Creatinine 2.11 Estimat Glomerular Filtration 22 Rate Random Glucose 153 Calcium Level 7.0 Protein Corrected Calcium 7.9 Magnesium Level 1.8 Troponin I 6.72 Total Protein 5.3 Activated Partial 111.6 50.8 Thromboplast Time Blood Gas Puncture Site RT RADIAL Blood Gas Patient Temperature 98.6 Blood Gas HCO3 15 Blood Gas Base Excess -12.5 Blood Gas Oxygen Saturation 89 Arterial Blood pH 7.13 Arterial Blood Partial 48 Pressure CO2 Arterial Blood Partial 73 Pressure O2 Arterial Blood Oxygen Content 13.1 Arterial Blood 0.7 Carboxyhemoglobin Arterial Blood Methemoglobin 1.2 Blood Gas Hemoglobin 10.5 Oxygen Delivery Device VENTILATOR Blood Gas Ventilator Setting SEE NOTE Blood Gas Inspired Oxygen 50 Test 09/30/16 09/30/16 09/30/16 09/30/16 11:25 13:26 14:17 15:32 Lactic Acid Level 1.7 Activated Partial 51.6 Thromboplast Time Sodium Level 140 Potassium Level 4.8 Chloride Level 105 Carbon Dioxide Level 23.0 Anion Gap 12 Blood Urea Nitrogen 44 Creatinine 2.71 Estimat Glomerular Filtration 17 Rate Random Glucose 137 Calcium Level 7.7 Blood Gas Puncture Site RT RADIAL Blood Gas Patient Temperature 98.6 Blood Gas HCO3 17 Blood Gas Base Excess -9.0 Blood Gas Oxygen Saturation 95 Arterial Blood pH 7.24 Arterial Blood Partial 42 Pressure CO2 Arterial Blood Partial 110 Pressure O2 Arterial Blood Oxygen Content 13.6 Arterial Blood 0.9 Carboxyhemoglobin Arterial Blood Methemoglobin 1.3 Blood Gas Hemoglobin 10.1 Oxygen Delivery Device VENTILATOR Blood Gas Ventilator Setting SEE NOTE Blood Gas Inspired Oxygen 60 Test 09/30/16 09/30/16 19:15 20:01 Activated Partial 42.9 Thromboplast Time Blood Gas Puncture Site RT RADIAL Blood Gas Patient Temperature 98.6 Blood Gas HCO3 19 Blood Gas Base Excess -8.0 Blood Gas Oxygen Saturation 90 Arterial Blood pH 7.21 Arterial Blood Partial 48 Pressure CO2 Arterial Blood Partial 76 Pressure O2 Arterial Blood Oxygen Content 13.4 Arterial Blood 0.9 Carboxyhemoglobin Arterial Blood Methemoglobin 1.2 Blood Gas Hemoglobin 10.6 Oxygen Delivery Device VENTILATOR Blood Gas Ventilator Setting PRVC/AC Blood Gas Inspired Oxygen 60 Date/Time Procedure Status Source Growth 09/29/16 17:20 Gram Stain - Final Resulted Sputum Endotracheal 09/29/16 17:20 Sputum Culture - Preliminary Resulted Gram Negative Chi 09/29/16 17:20 Cancelled Sputum Endotracheal 09/29/16 11:10 Aerobic Blood Culture - Preliminary Resulted Blood Peripheral NO GROWTH IN 1 DAY 09/29/16 11:10 Anaerobic Blood Culture - Preliminary Resulted Blood Peripheral NO GROWTH IN 1 DAY Result Diagram: 09/30/16 0219 09/30/16 1417 Imaging Last Impressions Renal Ultrasound 09/30/16 0000 Signed Impressions: Service Date/Time: Friday, September 30, 2016 14:31 - CONCLUSION: Lower limits of acceptable normal size the kidneys with mild echogenicity to the cortex which would suggest parenchymal disease. No evidence of obstruction or hydronephrosis. Phelps catheter in place in the urinary bladder. Ascitic fluid and right pleural effusion Maxim Pena MD Chest X-Ray 09/29/16 1059 Signed Impressions: Service Date/Time: September 11:07 - CONCLUSION: 1. ET tube and NG tube are in good position. 2. No pneumothorax. 3. Hyperaeration bilaterally with chronic interstitial changes characteristic of COPD. 4. No acute pulmonary infiltrates. Prakash Diane MD Assessment and Plan Problem List: (1) Acute renal failure Plan: She has ATN from cardiogenic shock, discussed option of dialysis with family, given her advance age she may likely need it on senior living bases, US kidneys showed chronic kidney disease as well check urine Na, creatinine osmolality Daughter will discuss with family and let us know in am may consider Palliative care. (2) Cardiogenic shock Plan: due to AMI Poor prognosis (3) Widespread acute Q wave ST elevation myocardial infarction (STEMI) Plan: Cardiology following (4) Respiratory failure Plan: on ventilator (5) COPD (chronic obstructive pulmonary disease) Plan: chronic Problem Qualifiers (1) Acute renal failure: Qualified Code: N17.0 - Acute renal failure with tubular necrosis (2) Respiratory failure: Qualified Code: J96.01 - Acute respiratory failure with hypoxia (3) COPD (chronic obstructive pulmonary disease): Xin Gupta MD Sep 30, 2016 22:24
[2016-10-01] VITALS (21 sets, daily range): BP systolic 86–112; BP diastolic 54–68; PULSE 63–78; RESP 24; TEMP 98.1–100.6; O2SAT 92–99
[2016-10-01] MEDS: PIPERACIL-TAZO 3.375 GM PREMIX 50 ML IV SCH ×2 (00:14→08:19)
[2016-10-01] MEDS: INSULIN NovoLIN REGULAR SUPPLEMENTAL SCALE SQ SCH ×4 (02:24→20:52)
[2016-10-01] MEDS: PROPOFOL 1000 MG/100 ML INJ 100 ML IV SCH (03:16)
[2016-10-01] MEDS: RESP: ALBUTEROL 2.5 MG/IPRATROPIUM 0.5 MG NEB (SCH) INH ×4 (03:31→22:34)
[2016-10-01] MEDS: CHLORHEXIDINE GLUCONATE 2 % 1 PACK (2 CLOTHS) TOP SCH (04:00)
[2016-10-01 04:37] LABS: AUTOMATED NEUTROPHIL # 10.5 TH/MM3 (1.8-7.7); HEMATOCRIT 29.2 % (35.0-46.0); HEMO FLAGS DIFF FINAL; LYMPHOCYTE # 0.3 TH/MM3 (1.0-4.8); MEAN CORPUSCULAR HEMOGLOBIN 29.6 PG (27.0-34.0); MEAN CORPUSCULAR HGB CONC 33.2 % (32.0-36.0); MONO % 3.9 % (0.0-8.0); NEUT % 93.1 % (16.0-70.0); PLATELET COUNT 257 TH/MM3 (150-450); RED BLOOD COUNT 3.28 MIL/MM3 (4.00-5.30); RED CELL DISTRIBUTION WIDTH 14.2 % (11.6-17.2); WHITE BLOOD COUNT 11.3 TH/MM3 (4.0-11.0)
[2016-10-01 04:41] LABS: APTT (PATIENT) 45.6 SEC (24.3-30.1)
[2016-10-01 05:04] LABS: BICARBONATE 19.8 MEQ/L (21.0-32.0); MAGNESIUM 1.9 MG/DL (1.5-2.5); POTASSIUM 4.4 MEQ/L (3.5-5.1)
[2016-10-01 05:19] LABS: CALCIUM-PROTEIN CORRECTED 8.3 MG/DL (8.5-10.1)
[2016-10-01] MEDS: methylPREDNISolone SOD SUCC 40 MG/1 ML VIAL IV PUSH SCH ×3 (05:43→20:53)
[2016-10-01] MEDS: fentaNYL DRIP 250 ML IV SCH ×2 (06:20→20:52)
[2016-10-01] MEDS: NOREPINEPHRINE 4 MG/D5W 250 ML IV SCH (08:19)
[2016-10-01] MEDS: SODIUM CHLORIDE 0.9% FLUSH 5 ML FLUSH IVF PRN ×2 (08:19→20:52)
[2016-10-01] MEDS: PANTOPRAZOLE SODIUM 40 MG VIAL IV SCH (08:20)
[2016-10-01] MEDS: ASPIRIN EC 81 MG TABEC PO SCH (08:20)
--- NOTE | 2016-10-01 09:45 | HHI.CCPN ---
Subjective Remarks/Hospital Course Patient is 85 years with hx COPD, active smoker, HTN, hyperlipidemia who presented to [facility] ED via EMS as a possible STEMI alert. According to the daughter the patient complained of chest congestion and cough on Monday and she was started on a Z-Galindo by her primary care physician. In the ED she was in severe respiratory distress and she was found to have a saturation of 84% on 4 liters in addition she was tachycardiac and had hand had a rectal temperature of 100.1. She was given bronchodilator treatment in route without any significant improvements. In addition she received Solu-Medrol 125 mg IV push. The patient was subsequently intubated with etomidate, succinylcholine of Versed and placed on full mechanical ventilation. She was also started on a Diprivan for sedation. Post intubation the patient became hypotensive and was started on Levophed at five mics. She was given 2 liters of crystalloids in the ED. EKG in the ED showed anterior septal of myocardial infarction and sinus tachycardia. Stat echo was performed in the ED which showed cardiomyopathy with EF of 25-30% and diffuse hypokinesis and hypokinesis of the anterior septal and apical myocardium. The patient was seen by Dr. Pena from cardiology service and was started on heparin infusion per [place] protocol. Normal and the family is still thinking about cardiac catheterization. Her laboratory data significant for mild elevated troponin at 0.84 with a total CK 130. Also she had also she has elevated lactic acid level at 3.1. Chest x-ray In the ED showed ET tube above the sara, COPD changes with a right with chronic interstitial changes. In the in the ED. She received vancomycin, Zosyn, azithromycin has scheduled to receive aspirin. 09/30 Patient is intubated and sedated with Fentanyl. On Levophed 3 mics and Heparin drip. T:99.9 rectally 10/01 Patient remains sedated with Diprivan, Fenanyl and intubated. On Levophed 5 mics and Heparin drip. Renal function continue to worse with Cr: 3.32 today from 2.71, UO 135ml in 24 hrs Objective Vital Signs Date Time Temp Pulse Resp B/P Pulse Ox O2 Delivery O2 Flow Rate FiO2 10/01/16 09:30 92 55 10/01/16 08:00 100.6 71 24 97/63 09/30/16 09:02 Ventilator 09/29/16 12:07 4.00 Intake and Output 09/30/16 09/30/16 09/30/16 07:59 15:59 23:59 Intake Total 3099 ml 1310 ml 759 ml Output Total 200 ml 60 ml 50 ml Balance 2899 ml 1250 ml 709 ml Result Diagram: 10/01/16 0400 10/01/16 0400 Other Results Laboratory Tests Test 09/30/16 09/30/16 09/30/16 09/30/16 11:15 11:25 13:26 14:17 Blood Gas Puncture Site RT RADIAL Blood Gas Patient Temperature 98.6 Blood Gas HCO3 15 mmol/L Blood Gas Base Excess -12.5 mmol/L Blood Gas Oxygen Saturation 89 % Arterial Blood pH 7.13 Arterial Blood Partial 48 mmHg Pressure CO2 Arterial Blood Partial 73 mmHg Pressure O2 Arterial Blood Oxygen Content 13.1 Vol % Arterial Blood 0.7 % Carboxyhemoglobin Arterial Blood Methemoglobin 1.2 % Blood Gas Hemoglobin 10.5 G/DL Oxygen Delivery Device VENTILATOR Blood Gas Ventilator Setting SEE NOTE Blood Gas Inspired Oxygen 50 % Lactic Acid Level 1.7 mmol/L Activated Partial 51.6 SEC Thromboplast Time Sodium Level 140 MEQ/L Potassium Level 4.8 MEQ/L Chloride Level 105 MEQ/L Carbon Dioxide Level 23.0 MEQ/L Anion Gap 12 MEQ/L Blood Urea Nitrogen 44 MG/DL Creatinine 2.71 MG/DL Estimat Glomerular Filtration 17 ML/MIN Rate Random Glucose 137 MG/DL Calcium Level 7.7 MG/DL Test 09/30/16 09/30/16 09/30/16 09/30/16 15:32 19:15 20:01 23:00 Blood Gas Puncture Site RT RADIAL RT RADIAL Blood Gas Patient Temperature 98.6 98.6 Blood Gas HCO3 17 mmol/L 19 mmol/L Blood Gas Base Excess -9.0 mmol/L -8.0 mmol/L Blood Gas Oxygen Saturation 95 % 90 % Arterial Blood pH 7.24 7.21 Arterial Blood Partial 42 mmHg 48 mmHg Pressure CO2 Arterial Blood Partial 110 mmHg 76 mmHg Pressure O2 Arterial Blood Oxygen Content 13.6 Vol % 13.4 Vol % Arterial Blood 0.9 % 0.9 % Carboxyhemoglobin Arterial Blood Methemoglobin 1.3 % 1.2 % Blood Gas Hemoglobin 10.1 G/DL 10.6 G/DL Oxygen Delivery Device VENTILATOR VENTILATOR Blood Gas Ventilator Setting SEE NOTE PRVC/AC Blood Gas Inspired Oxygen 60 % 60 % Activated Partial 42.9 SEC Thromboplast Time Urine Osmolality 350 MOSM/KG Urine Random Creatinine 59.3 MG/DL Urine Random Sodium 14 MEQ/L Test 10/01/16 04:00 White Blood Count 11.3 TH/MM3 Red Blood Count 3.28 MIL/MM3 Hemoglobin 9.7 GM/DL Hematocrit 29.2 % Mean Corpuscular Volume 89.0 FL Mean Corpuscular Hemoglobin 29.6 PG Mean Corpuscular Hemoglobin 33.2 % Concent Red Cell Distribution Width 14.2 % Platelet Count 257 TH/MM3 Mean Platelet Volume 10.0 FL Neutrophils (%) (Auto) 93.1 % Lymphocytes (%) (Auto) 3.0 % Monocytes (%) (Auto) 3.9 % Eosinophils (%) (Auto) 0.0 % Basophils (%) (Auto) 0.0 % Neutrophils # (Auto) 10.5 TH/MM3 Lymphocytes # (Auto) 0.3 TH/MM3 Monocytes # (Auto) 0.4 TH/MM3 Eosinophils # (Auto) 0.0 TH/MM3 Basophils # (Auto) 0.0 TH/MM3 CBC Comment DIFF FINAL Differential Comment Activated Partial 45.6 SEC Thromboplast Time Sodium Level 142 MEQ/L Potassium Level 4.4 MEQ/L Chloride Level 108 MEQ/L Carbon Dioxide Level 19.8 MEQ/L Anion Gap 14 MEQ/L Blood Urea Nitrogen 56 MG/DL Creatinine 3.32 MG/DL Estimat Glomerular Filtration 13 ML/MIN Rate Random Glucose 195 MG/DL Calcium Level 7.4 MG/DL Protein Corrected Calcium 8.3 MG/DL Magnesium Level 1.9 MG/DL Total Protein 5.4 GM/DL Imaging Last Impressions Renal Ultrasound 09/30/16 0000 Signed Impressions: Service Date/Time: Friday, September 30, 2016 14:31 - CONCLUSION: Lower limits of acceptable normal size the kidneys with mild echogenicity to the cortex which would suggest parenchymal disease. No evidence of obstruction or hydronephrosis. Phelps catheter in place in the urinary bladder. Ascitic fluid and right pleural effusion Maxim Pena MD Chest X-Ray 09/29/16 1059 Signed Impressions: Service Date/Time: September 11:07 - CONCLUSION: 1. ET tube and NG tube are in good position. 2. No pneumothorax. 3. Hyperaeration bilaterally with chronic interstitial changes characteristic of COPD. 4. No acute pulmonary infiltrates. Prakash Diane MD Objective Remarks GENERAL: Patient is 85 yo critically ill intubated, sedated and on Levophed SKIN: Warm and dry. HEAD: Normocephalic. EYES: No scleral icterus. No injection or drainage. NECK: Supple, trachea midline. No JVD or lymphadenopathy. Orally intubated CARDIOVASCULAR: Regular rate and rhythm without murmurs, gallops, or rubs. RESPIRATORY: Breath sounds equal bilaterally. No accessory muscle use. GASTROINTESTINAL: Abdomen soft, non-tender, nondistended. MUSCULOSKELETAL: No cyanosis, or edema. BACK: Nontender without obvious deformity. No CVA tenderness. Neuro: Sedated, intubated. A/P Assessment and Plan 1. VDRF 2. Shock, likely cardiogenic 3. Acute coronary syndrome. 4. cardiomyopathy with EF of 25-30%. 5. COPD exacerbation. 6. Lactic acidemia. 7. Acute kidney injury. 8. Hyperglycemia. 9. Hypertension. 10. Hyperlipidemia. Plan Neuro: On fentanyl/Diprivan infusion for sedation and vent synchrony. Daily sedation vacation and monitor neuro status closely. Pum: Continue with vent support and maintain sats above 92%. Bronchodilators, Solu-Medrol 40 mg IV q. 8. ICU vent bundle, check ABG CV: Wean off Levophed as adi maintain MAP > 65 mmHg. Lactic acid 1.7 Continue with Aspirin and heparin drip per [place] protocol. Echo showed EF of 25-30% with diffuse hypokinesis and hypokinesis of the anterior septal and apical myocardium. Cards- Dr. Pena. : Monitor renal function Is and Os and avoid nephrotoxins. Renal function continue to worse with Cr: 3.32 from 2.71 with poor UO. Renal US: No hydronephrosis. Renal- Dr. Gupta. Family leaning against HD. GI: TF-Nepro @40ml/hr, on Protonix 40 mg IV daily for GI prophylaxis. ID: Given vancomycin, Zosyn and azithromycin in ED. Continue Zosyn empirically. and monitor for signs of infections( fever and WBC) Sputum cx: GNR Endo: SSI with Accu-Chek for glycemic control. Heme: Monitor CBC, Coags- on heparin drip per [place] protocol. GI with Protonix 40 mg daily and DVT prophylaxis with SCDs and heparin drip. Palliative care on case- Alternative code. Lines: Right femoral line placed 09/30 Discussed with patient's daughter and updated her on her condition. She would like to give it another 48rs and if there is no improvements she will consider transitioning to comfort care. Prognosis guarded given multiorgan injury. CCT 30 mins Jason Herrera MD Oct 01, 2016 09:45
[2016-10-01 11:58] LABS: BLOOD GAS BASE EXCESS -9.2 mmol/L (-2-2); BLOOD GAS CARBOXYHEMOGLOBIN 0.8 % (0-4); BLOOD GAS HCO3 17 mmol/L (22-26); BLOOD GAS METHEMOGLOBIN 1.4 % (0-2); BLOOD GAS O2 HGB SATURATION 93 % (90-100); BLOOD GAS OXYGEN CONTENT 14.1 Vol % (12.0-20.0); BLOOD GAS PCO2 42 mmHg (38-42); BLOOD GAS PO2 88 mmHg (61-120); BLOOD GAS TOTAL HGB 10.8 G/DL (12.0-16.0); TEMP CORR TO 98.6
[2016-10-01 11:59] LABS: CRITICAL VALUE YES; DRAW SITE RT RADIAL; FIO2 55 %; NUMBER OF ARTERIAL PUNCTURES 1; OXYGEN DEVICE VENTILATOR; VENT SETTINGS SEE COMMENTS
[2016-10-01 12:00] LABS: STAT NO
--- NOTE | 2016-10-01 14:45 | PD.CARD.PN ---
Subjective Subjective Remarks Comatose on vent. no disterss. Objective Vital Signs / I&O Vital Signs Date Time Temp Pulse Resp B/P Pulse Ox O2 Delivery O2 Flow Rate FiO2 10/01/16 14:15 97 55 10/01/16 14:00 69 10/01/16 12:00 99.1 69 24 107/64 94 10/01/16 12:00 69 10/01/16 12:00 55 10/01/16 11:02 97 55 10/01/16 10:00 78 10/01/16 09:30 92 55 10/01/16 08:59 99 45 10/01/16 08:00 45 10/01/16 08:00 100.6 71 24 97/63 93 10/01/16 08:00 71 10/01/16 06:00 77 10/01/16 04:18 94 45 10/01/16 04:00 45 10/01/16 04:00 73 10/01/16 04:00 100.4 73 24 103/61 94 10/01/16 02:00 77 10/01/16 01:15 95 50 10/01/16 00:00 100.0 75 24 112/68 96 10/01/16 00:00 55 10/01/16 00:00 75 09/30/16 22:14 99 55 09/30/16 22:00 74 09/30/16 20:16 92 60 09/30/16 20:00 60 09/30/16 20:00 72 09/30/16 20:00 99.7 72 24 88/50 91 09/30/16 18:00 69 09/30/16 16:19 99 60 09/30/16 16:00 99.1 69 20 89/57 99 09/30/16 16:00 69 09/30/16 16:00 60 Vital Signs Date Time Temp Pulse Resp B/P Pulse Ox O2 Delivery O2 Flow Rate FiO2 10/01/16 14:15 97 55 10/01/16 14:00 69 10/01/16 12:00 99.1 69 24 107/64 94 10/01/16 12:00 69 10/01/16 12:00 55 10/01/16 11:02 97 55 10/01/16 10:00 78 10/01/16 09:30 92 55 10/01/16 08:59 99 45 10/01/16 08:00 45 10/01/16 08:00 100.6 71 24 97/63 93 10/01/16 08:00 71 10/01/16 06:00 77 10/01/16 04:18 94 45 10/01/16 04:00 45 10/01/16 04:00 73 10/01/16 04:00 100.4 73 24 103/61 94 10/01/16 02:00 77 10/01/16 01:15 95 50 10/01/16 00:00 100.0 75 24 112/68 96 10/01/16 00:00 55 10/01/16 00:00 75 09/30/16 22:14 99 55 09/30/16 22:00 74 09/30/16 20:16 92 60 09/30/16 20:00 60 09/30/16 20:00 72 09/30/16 20:00 99.7 72 24 88/50 91 09/30/16 18:00 69 09/30/16 16:19 99 60 09/30/16 16:00 99.1 69 20 89/57 99 09/30/16 16:00 69 09/30/16 16:00 60 I/O 09/30/16 09/30/16 09/30/16 10/01/16 10/01/16 10/01/16 07:00 15:00 23:00 07:00 15:00 23:00 Intake Total 3099 ml 1310 ml 759 ml 820 ml Output Total 200 ml 60 ml 50 ml 25 ml Balance 2899 ml 1250 ml 709 ml 795 ml Intake Oral 0 ml IV Total 3099 ml 1310 ml 725 ml 630 ml Tube Feeding 34 ml 150 ml Tube Irrigant 40 ml Output Urine Total 200 ml 60 ml 50 ml 25 ml Stool Total 0 ml 0 ml 0 ml # Bowel Movements 0 0 0 Physical Exam HEENTN: negative Lungs: clear anteriorly CV: negative Abd: soft with normal BS. Ext: no edema Neuro: not testable Laboratory Laboratory Tests Test 09/30/16 09/30/16 09/30/16 09/30/16 15:32 19:15 20:01 23:00 Blood Gas Puncture Site RT RADIAL RT RADIAL Blood Gas Patient Temperature 98.6 98.6 Blood Gas HCO3 17 mmol/L 19 mmol/L Blood Gas Base Excess -9.0 mmol/L -8.0 mmol/L Blood Gas Oxygen Saturation 95 % 90 % Arterial Blood pH 7.24 7.21 Arterial Blood Partial 42 mmHg 48 mmHg Pressure CO2 Arterial Blood Partial 110 mmHg 76 mmHg Pressure O2 Arterial Blood Oxygen Content 13.6 Vol % 13.4 Vol % Arterial Blood 0.9 % 0.9 % Carboxyhemoglobin Arterial Blood Methemoglobin 1.3 % 1.2 % Blood Gas Hemoglobin 10.1 G/DL 10.6 G/DL Oxygen Delivery Device VENTILATOR VENTILATOR Blood Gas Ventilator Setting SEE NOTE PRVC/AC Blood Gas Inspired Oxygen 60 % 60 % Activated Partial 42.9 SEC Thromboplast Time Urine Osmolality 350 MOSM/KG Urine Random Creatinine 59.3 MG/DL Urine Random Sodium 14 MEQ/L Test 10/01/16 10/01/16 04:00 11:48 White Blood Count 11.3 TH/MM3 Red Blood Count 3.28 MIL/MM3 Hemoglobin 9.7 GM/DL Hematocrit 29.2 % Mean Corpuscular Volume 89.0 FL Mean Corpuscular Hemoglobin 29.6 PG Mean Corpuscular Hemoglobin 33.2 % Concent Red Cell Distribution Width 14.2 % Platelet Count 257 TH/MM3 Mean Platelet Volume 10.0 FL Neutrophils (%) (Auto) 93.1 % Lymphocytes (%) (Auto) 3.0 % Monocytes (%) (Auto) 3.9 % Eosinophils (%) (Auto) 0.0 % Basophils (%) (Auto) 0.0 % Neutrophils # (Auto) 10.5 TH/MM3 Lymphocytes # (Auto) 0.3 TH/MM3 Monocytes # (Auto) 0.4 TH/MM3 Eosinophils # (Auto) 0.0 TH/MM3 Basophils # (Auto) 0.0 TH/MM3 CBC Comment DIFF FINAL Differential Comment Activated Partial 45.6 SEC Thromboplast Time Sodium Level 142 MEQ/L Potassium Level 4.4 MEQ/L Chloride Level 108 MEQ/L Carbon Dioxide Level 19.8 MEQ/L Anion Gap 14 MEQ/L Blood Urea Nitrogen 56 MG/DL Creatinine 3.32 MG/DL Estimat Glomerular Filtration 13 ML/MIN Rate Random Glucose 195 MG/DL Calcium Level 7.4 MG/DL Protein Corrected Calcium 8.3 MG/DL Magnesium Level 1.9 MG/DL Total Protein 5.4 GM/DL Blood Gas Puncture Site RT RADIAL Blood Gas Patient Temperature 98.6 Blood Gas HCO3 17 mmol/L Blood Gas Base Excess -9.2 mmol/L Blood Gas Oxygen Saturation 93 % Arterial Blood pH 7.23 Arterial Blood Partial 42 mmHg Pressure CO2 Arterial Blood Partial 88 mmHg Pressure O2 Arterial Blood Oxygen Content 14.1 Vol % Arterial Blood 0.8 % Carboxyhemoglobin Arterial Blood Methemoglobin 1.4 % Blood Gas Hemoglobin 10.8 G/DL Oxygen Delivery Device VENTILATOR Blood Gas Ventilator Setting SEE COMMENTS Blood Gas Inspired Oxygen 55 % Imaging Last 48 hours Impressions Renal Ultrasound 09/30/16 0000 Signed Impressions: Service Date/Time: Friday, September 30, 2016 14:31 - CONCLUSION: Lower limits of acceptable normal size the kidneys with mild echogenicity to the cortex which would suggest parenchymal disease. No evidence of obstruction or hydronephrosis. Phelps catheter in place in the urinary bladder. Ascitic fluid and right pleural effusion Maxim Pena MD Assessment and Plan Problem List: (1) Cardiogenic shock (2) Respiratory failure (3) Tricuspid regurgitation (4) COPD (chronic obstructive pulmonary disease) Assessment and Plan ICM with shock on levophed and progressive renal failure. Nothing to offer and not a IABP canidate in this setting. Family wants conservative Rx only with no cath and no dialysis. They plan Hospice Monday. Continue present Rx until decision on support can be finalized. Discussed with medical physics researcher. Problem Qualifiers (1) Respiratory failure: Qualified Code: J96.01 - Acute respiratory failure with hypoxia (2) Tricuspid regurgitation: Qualified Code: I36.1 - Non-rheumatic tricuspid valve insufficiency (3) COPD (chronic obstructive pulmonary disease): Janae Aldana MD Oct 01, 2016 14:45
[2016-10-01] MEDS: PIPERACIL-TAZO 2.25 GM PREMIX 50 ML IV SCH (15:56)
[2016-10-02] VITALS (18 sets, daily range): BP systolic 89–114; BP diastolic 54–67; PULSE 67–93; RESP 24; TEMP 97.6–99; O2SAT 92–99
[2016-10-02] MEDS: PIPERACIL-TAZO 2.25 GM PREMIX 50 ML IV SCH ×4 (01:55→22:52)
[2016-10-02] MEDS: INSULIN NovoLIN REGULAR SUPPLEMENTAL SCALE SQ SCH ×4 (01:56→20:42)
[2016-10-02] MEDS: CHLORHEXIDINE GLUCONATE 2 % 1 PACK (2 CLOTHS) TOP SCH (01:57)
[2016-10-02] MEDS: RESP: ALBUTEROL 2.5 MG/IPRATROPIUM 0.5 MG NEB (SCH) INH ×4 (04:33→20:34)
[2016-10-02] MEDS: methylPREDNISolone SOD SUCC 40 MG/1 ML VIAL IV PUSH SCH ×3 (05:40→20:42)
[2016-10-02 06:05] LABS: AUTOMATED NEUTROPHIL # 11.5 TH/MM3 (1.8-7.7); BASOPHIL % 0.1 % (0.0-2.0); HEMATOCRIT 30.6 % (35.0-46.0); HEMO FLAGS DIFF FINAL; LYMPHOCYTE # 0.3 TH/MM3 (1.0-4.8); MEAN CELL VOLUME 89.2 FL (80.0-100.0); MEAN CORPUSCULAR HEMOGLOBIN 29.1 PG (27.0-34.0); MEAN CORPUSCULAR HGB CONC 32.6 % (32.0-36.0); MONO % 5.8 % (0.0-8.0); NEUT % 92.1 % (16.0-70.0); PLATELET COUNT 273 TH/MM3 (150-450); RED BLOOD COUNT 3.44 MIL/MM3 (4.00-5.30); RED CELL DISTRIBUTION WIDTH 14.2 % (11.6-17.2); WHITE BLOOD COUNT 12.5 TH/MM3 (4.0-11.0)
[2016-10-02 06:24] LABS: BICARBONATE 20.7 MEQ/L (21.0-32.0); POTASSIUM 4.2 MEQ/L (3.5-5.1)
[2016-10-02 06:44] LABS: APTT (PATIENT) 37.6 SEC (24.3-30.1)
[2016-10-02] MEDS: fentaNYL DRIP 250 ML IV SCH ×2 (08:20→22:55)
[2016-10-02] MEDS: ASPIRIN EC 81 MG TABEC PO SCH (08:21)
[2016-10-02] MEDS: PROPOFOL 1000 MG/100 ML INJ 100 ML IV SCH ×3 (08:21→22:52)
[2016-10-02] MEDS: PANTOPRAZOLE SODIUM 40 MG VIAL IV SCH (08:21)
--- NOTE | 2016-10-02 08:41 | HHI.CCPN ---
Subjective Remarks/Hospital Course Patient is 85 years with hx COPD, active smoker, HTN, hyperlipidemia who presented to [facility] ED via EMS as a possible STEMI alert. According to the daughter the patient complained of chest congestion and cough on Monday and she was started on a Z-Galindo by her primary care physician. In the ED she was in severe respiratory distress and she was found to have a saturation of 84% on 4 liters in addition she was tachycardiac and had hand had a rectal temperature of 100.1. She was given bronchodilator treatment in route without any significant improvements. In addition she received Solu-Medrol 125 mg IV push. The patient was subsequently intubated with etomidate, succinylcholine of Versed and placed on full mechanical ventilation. She was also started on a Diprivan for sedation. Post intubation the patient became hypotensive and was started on Levophed at five mics. She was given 2 liters of crystalloids in the ED. EKG in the ED showed anterior septal of myocardial infarction and sinus tachycardia. Stat echo was performed in the ED which showed cardiomyopathy with EF of 25-30% and diffuse hypokinesis and hypokinesis of the anterior septal and apical myocardium. The patient was seen by Dr. Pena from cardiology service and was started on heparin infusion per [place] protocol. Normal and the family is still thinking about cardiac catheterization. Her laboratory data significant for mild elevated troponin at 0.84 with a total CK 130. Also she had also she has elevated lactic acid level at 3.1. Chest x-ray In the ED showed ET tube above the sara, COPD changes with a right with chronic interstitial changes. In the in the ED. She received vancomycin, Zosyn, azithromycin has scheduled to receive aspirin. 09/30 Patient is intubated and sedated with Fentanyl. On Levophed 3 mics and Heparin drip. T:99.9 rectally 10/01 Patient remains sedated with Diprivan, Fenanyl and intubated. On Levophed 5 mics and Heparin drip. Renal function continue to worse with Cr: 3.32 today from 2.71, UO 135ml in 24 hrs 10/02 Patient is sedated and intubated. On Levophed 6 mics and heparin drip. Renal function continue to worse with Cr:4.01 from 3.32. Afebrile. Objective Vital Signs Date Time Temp Pulse Resp B/P Pulse Ox O2 Delivery O2 Flow Rate FiO2 10/02/16 08:12 96 55 10/02/16 06:00 73 10/02/16 04:00 99.0 24 89/60 09/30/16 09:02 Ventilator 09/29/16 12:07 4.00 Intake and Output 10/01/16 10/01/16 10/02/16 08:00 16:00 00:00 Intake Total 820 ml 1220 ml 726 ml Output Total 25 ml 100 ml 75 ml Balance 795 ml 1120 ml 651 ml Result Diagram: 10/02/16 0545 10/02/16 0545 Other Results Laboratory Tests Test 10/01/16 10/02/16 10/02/16 11:48 05:43 05:45 Blood Gas Puncture Site RT RADIAL Blood Gas Patient Temperature 98.6 Blood Gas HCO3 17 mmol/L Blood Gas Base Excess -9.2 mmol/L Blood Gas Oxygen Saturation 93 % Arterial Blood pH 7.23 Arterial Blood Partial 42 mmHg Pressure CO2 Arterial Blood Partial 88 mmHg Pressure O2 Arterial Blood Oxygen Content 14.1 Vol % Arterial Blood 0.8 % Carboxyhemoglobin Arterial Blood Methemoglobin 1.4 % Blood Gas Hemoglobin 10.8 G/DL Oxygen Delivery Device VENTILATOR Blood Gas Ventilator Setting SEE COMMENTS Blood Gas Inspired Oxygen 55 % Activated Partial 37.6 SEC Thromboplast Time White Blood Count 12.5 TH/MM3 Red Blood Count 3.44 MIL/MM3 Hemoglobin 10.0 GM/DL Hematocrit 30.6 % Mean Corpuscular Volume 89.2 FL Mean Corpuscular Hemoglobin 29.1 PG Mean Corpuscular Hemoglobin 32.6 % Concent Red Cell Distribution Width 14.2 % Platelet Count 273 TH/MM3 Mean Platelet Volume 10.0 FL Neutrophils (%) (Auto) 92.1 % Lymphocytes (%) (Auto) 2.0 % Monocytes (%) (Auto) 5.8 % Eosinophils (%) (Auto) 0.0 % Basophils (%) (Auto) 0.1 % Neutrophils # (Auto) 11.5 TH/MM3 Lymphocytes # (Auto) 0.3 TH/MM3 Monocytes # (Auto) 0.7 TH/MM3 Eosinophils # (Auto) 0.0 TH/MM3 Basophils # (Auto) 0.0 TH/MM3 CBC Comment DIFF FINAL Differential Comment Sodium Level 139 MEQ/L Potassium Level 4.2 MEQ/L Chloride Level 105 MEQ/L Carbon Dioxide Level 20.7 MEQ/L Anion Gap 13 MEQ/L Blood Urea Nitrogen 76 MG/DL Creatinine 4.09 MG/DL Estimat Glomerular Filtration 10 ML/MIN Rate Random Glucose 193 MG/DL Calcium Level 8.0 MG/DL Imaging Last Impressions Renal Ultrasound 09/30/16 0000 Signed Impressions: Service Date/Time: Friday, September 30, 2016 14:31 - CONCLUSION: Lower limits of acceptable normal size the kidneys with mild echogenicity to the cortex which would suggest parenchymal disease. No evidence of obstruction or hydronephrosis. Phelps catheter in place in the urinary bladder. Ascitic fluid and right pleural effusion Maxim Pena MD Chest X-Ray 09/29/16 1059 Signed Impressions: Service Date/Time: September 11:07 - CONCLUSION: 1. ET tube and NG tube are in good position. 2. No pneumothorax. 3. Hyperaeration bilaterally with chronic interstitial changes characteristic of COPD. 4. No acute pulmonary infiltrates. Prakash Diane MD Objective Remarks GENERAL: Patient is 85 yo critically ill intubated, sedated and on Levophed SKIN: Warm and dry. HEAD: Normocephalic. EYES: No scleral icterus. No injection or drainage. NECK: Supple, trachea midline. No JVD or lymphadenopathy. Orally intubated CARDIOVASCULAR: Regular rate and rhythm without murmurs, gallops, or rubs. RESPIRATORY: Breath sounds equal bilaterally. No accessory muscle use. GASTROINTESTINAL: Abdomen soft, non-tender, nondistended. MUSCULOSKELETAL: No cyanosis, or edema. BACK: Nontender without obvious deformity. No CVA tenderness. Neuro: Sedated, intubated. A/P Assessment and Plan 1. VDRF 2. Shock, likely cardiogenic 3. Acute coronary syndrome. 4. cardiomyopathy with EF of 25-30%. 5. COPD exacerbation. 6. Lactic acidemia. 7. Acute kidney injury. 8. Hyperglycemia. 9. Hypertension. 10. Hyperlipidemia. Plan Neuro: On fentanyl/Diprivan infusion for sedation and vent synchrony. Daily sedation vacation and monitor neuro status closely. Pum: Continue with vent support and maintain sats above 92%. Bronchodilators, Solu-Medrol 40 mg IV q. 8. ICU vent bundle, not a candidate for SBT due to hemodynamic instability. CV: Wean off Levophed as adi maintain MAP > 65 mmHg. Lactic acid 1.7 Continue with Aspirin and heparin drip per [place] protocol. Echo showed EF of 25-30% with diffuse hypokinesis and hypokinesis of the anterior septal and apical myocardium. Cards- Dr. Pena. : Monitor renal function Is and Os and avoid nephrotoxins. Renal function continue to worse with Cr: 4.01 from 3.32 with poor UO. Renal US: No hydronephrosis. Renal- Dr. Gupta. Family is refusing HD. GI: TF-Nepro @40ml/hr, on Protonix 40 mg IV daily for GI prophylaxis. ID: Given vancomycin, Zosyn and azithromycin in ED. Continue Zosyn empirically. and monitor for signs of infections( fever and WBC) Sputum cx: Serratia Endo: SSI with Accu-Chek for glycemic control. Heme: Monitor CBC, Coags- on heparin drip per [place] protocol. GI with Protonix 40 mg daily and DVT prophylaxis with SCDs and heparin drip. Palliative care on case- Alternative code. Lines: Right femoral line placed 09/30 Discussed with patient's daughter and updated her on her condition. Family will likely transition to comfort care tomorrow. Prognosis guarded given multiorgan injury. CCT 30 mins Jason Herrera MD Oct 02, 2016 08:41
[2016-10-02] MEDS: NOREPINEPHRINE 4 MG/D5W 250 ML IV SCH ×2 (11:18→22:56)
--- NOTE | 2016-10-02 12:40 | HHI.NPPN ---
Objective Data Data 10/01/16 10/02/16 19:00 07:00 Intake Total 1220 ml 1621 ml Output Total 100 ml 101 ml Balance 1120 ml 1520 ml IV Total 852 ml 1005 ml Tube Feeding 308 ml 496 ml Tube Irrigant 60 ml 120 ml Output Urine Total 100 ml 100 ml Stool Total 0 ml 1 ml Tube Feeding Residual Discard 0 ml Vital Signs Date Time Temp Pulse Resp B/P Pulse Ox O2 Delivery O2 Flow Rate FiO2 10/02/16 12:00 97.9 74 24 91/54 94 10/02/16 12:00 55 10/02/16 12:00 74 10/02/16 11:29 92 55 10/02/16 10:00 71 10/02/16 08:12 96 55 10/02/16 08:00 97.6 72 24 94/58 93 10/02/16 08:00 72 10/02/16 08:00 55 10/02/16 06:00 73 10/02/16 04:30 96 55 10/02/16 04:00 55 10/02/16 04:00 99.0 93 24 89/60 96 10/02/16 04:00 69 10/02/16 02:00 67 10/02/16 01:49 95 55 10/02/16 00:00 55 10/02/16 00:00 98.9 71 24 97/61 95 10/02/16 00:00 71 10/01/16 23:35 95 55 10/01/16 22:00 63 10/01/16 20:00 55 10/01/16 20:00 68 10/01/16 20:00 98.1 68 24 86/54 94 10/01/16 19:50 95 55 10/01/16 18:00 67 10/01/16 17:21 97 45 10/01/16 16:18 55 10/01/16 16:00 98.9 69 24 92/57 98 10/01/16 16:00 69 10/01/16 14:15 97 55 10/01/16 14:00 69 -: 10/02/16 0545 10/02/16 0545 Microbiology 10/02/16 Stool Occult Blood (IZABELLA), Received Pending Physical Exam General Appearance: Pale Pulmonary Resp Exam: Decreased Bases Cardiology CV Exam: Regular Gastrointestinal/Abdomen GI Exam: Soft Extremeties Extremities Exam: Trace Edema Assessment/Plan Problem List: (1) Acute renal failure Plan: She has ATN from cardiogenic shock worsening family leaning towards withdrawal (2) Cardiogenic shock Plan: due to AMI Poor prognosis (3) Widespread acute Q wave ST elevation myocardial infarction (STEMI) Plan: Cardiology following (4) Respiratory failure Plan: on ventilator (5) COPD (chronic obstructive pulmonary disease) Plan: chronic Problem Qualifiers (1) Acute renal failure: Qualified Code: N17.0 - Acute renal failure with tubular necrosis (2) Respiratory failure: Qualified Code: J96.01 - Acute respiratory failure with hypoxia (3) COPD (chronic obstructive pulmonary disease): Xin Gupta MD Oct 02, 2016 12:40
--- NOTE | 2016-10-02 12:43 | HHI.PR ---
Subjective Remarks this note entry is for 10/01 visit I saw her and noted worsening renal failure Objective Vital Signs Date Time Temp Pulse Resp B/P Pulse Ox O2 Delivery O2 Flow Rate FiO2 10/02/16 12:00 97.9 74 24 91/54 94 10/02/16 12:00 55 10/02/16 12:00 74 10/02/16 11:29 92 55 10/02/16 10:00 71 10/02/16 08:12 96 55 10/02/16 08:00 97.6 72 24 94/58 93 10/02/16 08:00 72 10/02/16 08:00 55 10/02/16 06:00 73 10/02/16 04:30 96 55 10/02/16 04:00 55 10/02/16 04:00 99.0 93 24 89/60 96 10/02/16 04:00 69 10/02/16 02:00 67 10/02/16 01:49 95 55 10/02/16 00:00 55 10/02/16 00:00 98.9 71 24 97/61 95 10/02/16 00:00 71 10/01/16 23:35 95 55 10/01/16 22:00 63 10/01/16 20:00 55 10/01/16 20:00 68 10/01/16 20:00 98.1 68 24 86/54 94 10/01/16 19:50 95 55 10/01/16 18:00 67 10/01/16 17:21 97 45 10/01/16 16:18 55 10/01/16 16:00 98.9 69 24 92/57 98 10/01/16 16:00 69 10/01/16 14:15 97 55 10/01/16 14:00 69 I/O 10/01/16 10/01/16 10/01/16 10/02/16 10/02/16 10/02/16 07:00 15:00 23:00 07:00 15:00 23:00 Intake Total 820 ml 1220 ml 726 ml 895 ml Output Total 25 ml 100 ml 75 ml 26 ml Balance 795 ml 1120 ml 651 ml 869 ml IV Total 630 ml 852 ml 415 ml 590 ml Tube Feeding 150 ml 308 ml 251 ml 245 ml Tube Irrigant 40 ml 60 ml 60 ml 60 ml Output Urine Total 25 ml 100 ml 75 ml 25 ml Stool Total 0 ml 0 ml 0 ml 1 ml Tube Feeding Residual Discard 0 ml Result Diagram: 10/02/16 0545 10/02/1645 Objective Remarks on vent c/l diminished at bases CV S1 S2 ABD SOFT EXT 1 Plus edema Assessment and Plan Problem List: (1) Acute renal failure Status: Acute Plan: worsening discussed with Dr. Herrera he agrees with observation and possible withdrawal (2) Cardiogenic shock Status: Acute Problem Qualifiers (1) Acute renal failure: Qualified Code: N17.0 - Acute renal failure with tubular necrosis Xin Gupta MD Oct 02, 2016 12:43
--- NOTE | 2016-10-02 14:33 | PD.CARD.PN ---
Subjective Subjective Remarks Sedated on vent; no change Objective Medications Current Medications Medications (Trade) Dose Ordered Sig/Marie Route Start Time Stop Time Status Last Admin IV Flush 2 ml 2 ml UNSCH PRN IVF 09/29/16 11:00 10/01/16 20:52 Propofol 100 ml @ 0 mls/hr TITRATE IV 09/29/16 11:15 10/02/16 08:21 (Heparin-D5W Inj) 250 ml @ 0 mls/hr TITRATE IV 09/29/16 12:45 09/29/16 14:12 (Protonix Inj) 40 mg DAILY IV 09/29/16 14:00 10/02/16 08:21 Miscellaneous Information 1 Q361D XX 09/29/16 14:00 (Chlorhexidine 2% Cloth) 3 pack Taper DAILY@04 TOP 09/30/16 04:00 09/26/17 03:59 10/02/16 01:57 (Chlorhexidine 2% Cloth) 3 pack UNSCH PRN TOP 09/29/16 14:00 (D50w (Vial) Inj) 25 ml UNSCH PRN IV PUSH 09/29/16 14:00 (Glucagon Inj) 1 mg UNSCH PRN OTHER 09/29/16 14:00 (NovoLIN R SUPPLEMENTAL SCALE) 1 Q6H SQ 09/29/16 14:00 10/02/16 08:20 (Ecotrin Ec) 81 mg DAILY PO 09/30/16 09:00 10/02/16 08:21 Methylprednisolone Sodium Succinate 40 mg 40 mg Q8HR IV PUSH 09/29/16 14:00 10/02/16 05:40 Fentanyl Citrate 250 ml @ 0 mls/hr TITRATE IV 09/29/16 14:15 10/02/16 08:20 Norepinephrine Bitartrate 250 ml @ 0 mls/hr TITRATE IV 09/30/16 06:00 10/02/16 11:18 (Zosyn 2.25 Gm Premix) 50 ml @ 100 mls/hr Q8H IV 10/01/16 16:00 10/02/16 08:20 Vital Signs / I&O Vital Signs Date Time Temp Pulse Resp B/P Pulse Ox O2 Delivery O2 Flow Rate FiO2 10/02/16 14:00 70 10/02/16 12:00 97.9 74 24 91/54 94 10/02/16 12:00 55 10/02/16 12:00 74 10/02/16 11:29 92 55 10/02/16 10:00 71 10/02/16 08:12 96 55 10/02/16 08:00 97.6 72 24 94/58 93 10/02/16 08:00 72 10/02/16 08:00 55 10/02/16 06:00 73 10/02/16 04:30 96 55 10/02/16 04:00 55 10/02/16 04:00 99.0 93 24 89/60 96 10/02/16 04:00 69 10/02/16 02:00 67 10/02/16 01:49 95 55 10/02/16 00:00 55 10/02/16 00:00 98.9 71 24 97/61 95 10/02/16 00:00 71 10/01/16 23:35 95 55 10/01/16 22:00 63 10/01/16 20:00 55 10/01/16 20:00 68 10/01/16 20:00 98.1 68 24 86/54 94 10/01/16 19:50 95 55 10/01/16 18:00 67 10/01/16 17:21 97 45 10/01/16 16:18 55 10/01/16 16:00 98.9 69 24 92/57 98 10/01/16 16:00 69 I/O 10/01/16 10/01/16 10/01/16 10/02/16 10/02/16 10/02/16 07:00 15:00 23:00 07:00 15:00 23:00 Intake Total 820 ml 1220 ml 726 ml 895 ml 953 ml Output Total 25 ml 100 ml 75 ml 26 ml 50 ml Balance 795 ml 1120 ml 651 ml 869 ml 903 ml IV Total 630 ml 852 ml 415 ml 590 ml 531 ml Tube Feeding 150 ml 308 ml 251 ml 245 ml 302 ml Tube Irrigant 40 ml 60 ml 60 ml 60 ml Other 120 ml Output Urine Total 25 ml 100 ml 75 ml 25 ml 50 ml Stool Total 0 ml 0 ml 0 ml 1 ml Tube Feeding Residual Discard 0 ml # Bowel Movements 2 Physical Exam Lungs: clear anteriorly CV: RRR, HS distant Ext: No edema Laboratory Laboratory Tests Test 10/02/16 10/02/16 05:43 05:45 Activated Partial 37.6 SEC Thromboplast Time White Blood Count 12.5 TH/MM3 Red Blood Count 3.44 MIL/MM3 Hemoglobin 10.0 GM/DL Hematocrit 30.6 % Mean Corpuscular Volume 89.2 FL Mean Corpuscular Hemoglobin 29.1 PG Mean Corpuscular Hemoglobin 32.6 % Concent Red Cell Distribution Width 14.2 % Platelet Count 273 TH/MM3 Mean Platelet Volume 10.0 FL Neutrophils (%) (Auto) 92.1 % Lymphocytes (%) (Auto) 2.0 % Monocytes (%) (Auto) 5.8 % Eosinophils (%) (Auto) 0.0 % Basophils (%) (Auto) 0.1 % Neutrophils # (Auto) 11.5 TH/MM3 Lymphocytes # (Auto) 0.3 TH/MM3 Monocytes # (Auto) 0.7 TH/MM3 Eosinophils # (Auto) 0.0 TH/MM3 Basophils # (Auto) 0.0 TH/MM3 CBC Comment DIFF FINAL Differential Comment Sodium Level 139 MEQ/L Potassium Level 4.2 MEQ/L Chloride Level 105 MEQ/L Carbon Dioxide Level 20.7 MEQ/L Anion Gap 13 MEQ/L Blood Urea Nitrogen 76 MG/DL Creatinine 4.09 MG/DL Estimat Glomerular Filtration 10 ML/MIN Rate Random Glucose 193 MG/DL Calcium Level 8.0 MG/DL Imaging Last Impressions Renal Ultrasound 09/30/16 0000 Signed Impressions: Service Date/Time: Friday, September 30, 2016 14:31 - CONCLUSION: Lower limits of acceptable normal size the kidneys with mild echogenicity to the cortex which would suggest parenchymal disease. No evidence of obstruction or hydronephrosis. Phelps catheter in place in the urinary bladder. Ascitic fluid and right pleural effusion Maxim Pena MD Chest X-Ray 09/29/16 1059 Signed Impressions: Service Date/Time: September 11:07 - CONCLUSION: 1. ET tube and NG tube are in good position. 2. No pneumothorax. 3. Hyperaeration bilaterally with chronic interstitial changes characteristic of COPD. 4. No acute pulmonary infiltrates. Prakash Diane MD Assessment and Plan Problem List: (1) Cardiogenic shock (2) Respiratory failure (3) Tricuspid regurgitation (4) COPD (chronic obstructive pulmonary disease) Assessment and Plan Covering for Dr. Pena 1) ICM with shock on levophed 2) Progressive renal failure. Nothing to offer and not a IABP candidate in this setting. Family wants conservative Rx only with no cath and no dialysis. They plan Hospice Monday. Continue present Rx until decision on support can be finalized. . Dr. Reyes will be available Monday for prn coverage. Dr. Pena to resume cardiology f/u if needed on Monday. Discussed Condition With Dr. Aldana Problem Qualifiers (1) Respiratory failure: Qualified Code: J96.01 - Acute respiratory failure with hypoxia (2) Tricuspid regurgitation: Qualified Code: I36.1 - Non-rheumatic tricuspid valve insufficiency (3) COPD (chronic obstructive pulmonary disease): Angeline Steiner Oct 02, 2016 14:33
[2016-10-02 17:44] LABS: APTT (PATIENT) 35.5 SEC (24.3-30.1)
[2016-10-02 23:42] LABS: APTT (PATIENT) 44.5 SEC (24.3-30.1)
[2016-10-03] VITALS (9 sets, daily range): BP systolic 95–98; BP diastolic 54–58; PULSE 70–79; RESP 24–26; TEMP 97.8–99.1; O2SAT 92–97
[2016-10-03] MEDS: INSULIN NovoLIN REGULAR SUPPLEMENTAL SCALE SQ SCH ×2 (01:33→07:36)
[2016-10-03] MEDS: RESP: ALBUTEROL 2.5 MG/IPRATROPIUM 0.5 MG NEB (SCH) INH ×2 (03:49→08:59)
[2016-10-03] MEDS: CHLORHEXIDINE GLUCONATE 2 % 1 PACK (2 CLOTHS) TOP SCH (04:00)
[2016-10-03] MEDS: methylPREDNISolone SOD SUCC 40 MG/1 ML VIAL IV PUSH SCH ×2 (05:08→13:46)
[2016-10-03 05:53] LABS: APTT (PATIENT) 44.8 SEC (24.3-30.1)
[2016-10-03] MEDS: PANTOPRAZOLE SODIUM 40 MG VIAL IV SCH (07:36)
[2016-10-03] MEDS: PIPERACIL-TAZO 2.25 GM PREMIX 50 ML IV SCH (07:36)
[2016-10-03] MEDS: ASPIRIN EC 81 MG TABEC PO SCH (07:36)
--- NOTE | 2016-10-03 09:11 | HHI.CCPN ---
Subjective Remarks/Hospital Course Patient is 85 years with hx COPD, active smoker, HTN, hyperlipidemia who presented to [facility] ED via EMS as a possible STEMI alert. According to the daughter the patient complained of chest congestion and cough on Monday and she was started on a Z-Galindo by her primary care physician. In the ED she was in severe respiratory distress and she was found to have a saturation of 84% on 4 liters in addition she was tachycardiac and had hand had a rectal temperature of 100.1. She was given bronchodilator treatment in route without any significant improvements. In addition she received Solu-Medrol 125 mg IV push. The patient was subsequently intubated with etomidate, succinylcholine of Versed and placed on full mechanical ventilation. She was also started on a Diprivan for sedation. Post intubation the patient became hypotensive and was started on Levophed at five mics. She was given 2 liters of crystalloids in the ED. EKG in the ED showed anterior septal of myocardial infarction and sinus tachycardia. Stat echo was performed in the ED which showed cardiomyopathy with EF of 25-30% and diffuse hypokinesis and hypokinesis of the anterior septal and apical myocardium. The patient was seen by Dr. Pena from cardiology service and was started on heparin infusion per [place] protocol. Normal and the family is still thinking about cardiac catheterization. Her laboratory data significant for mild elevated troponin at 0.84 with a total CK 130. Also she had also she has elevated lactic acid level at 3.1. Chest x-ray In the ED showed ET tube above the sara, COPD changes with a right with chronic interstitial changes. In the in the ED. She received vancomycin, Zosyn, azithromycin has scheduled to receive aspirin. 09/30 Patient is intubated and sedated with Fentanyl. On Levophed 3 mics and Heparin drip. T:99.9 rectally 10/01 Patient remains sedated with Diprivan, Fenanyl and intubated. On Levophed 5 mics and Heparin drip. Renal function continue to worse with Cr: 3.32 today from 2.71, UO 135ml in 24 hrs 10/02 Patient is sedated and intubated. On Levophed 6 mics and heparin drip. Renal function continue to worse with Cr:4.01 from 3.32. Afebrile. 10/03 Patient remains sedated and intubated. On Levophed and heparin drips. For likely withdrawal support and transition to comfort care today. Objective Vital Signs Date Time Temp Pulse Resp B/P Pulse Ox O2 Delivery O2 Flow Rate FiO2 10/03/16 09:00 94 55 10/03/16 06:00 75 10/03/16 04:00 97.8 26 95/54 09/30/16 09:02 Ventilator 09/29/16 12:07 4.00 Intake and Output 10/02/16 10/02/16 10/03/16 08:00 16:00 00:00 Intake Total 895 ml 953 ml 1045 ml Output Total 26 ml 50 ml 75 ml Balance 869 ml 903 ml 970 ml Result Diagram: 10/02/16 0545 10/02/16 0545 Other Results Laboratory Tests Test 10/02/16 10/02/16 10/03/16 16:35 23:10 05:35 Activated Partial 35.5 SEC 44.5 SEC 44.8 SEC Thromboplast Time Imaging Last Impressions Renal Ultrasound 09/30/16 0000 Signed Impressions: Service Date/Time: Friday, September 30, 2016 14:31 - CONCLUSION: Lower limits of acceptable normal size the kidneys with mild echogenicity to the cortex which would suggest parenchymal disease. No evidence of obstruction or hydronephrosis. Phelps catheter in place in the urinary bladder. Ascitic fluid and right pleural effusion Maxim Pena MD Chest X-Ray 09/29/16 1059 Signed Impressions: Service Date/Time: September 11:07 - CONCLUSION: 1. ET tube and NG tube are in good position. 2. No pneumothorax. 3. Hyperaeration bilaterally with chronic interstitial changes characteristic of COPD. 4. No acute pulmonary infiltrates. Prakash Diane MD Objective Remarks GENERAL: Patient is 85 yo critically ill intubated, sedated and on Levophed SKIN: Warm and dry. HEAD: Normocephalic. EYES: No scleral icterus. No injection or drainage. NECK: Supple, trachea midline. No JVD or lymphadenopathy. Orally intubated CARDIOVASCULAR: Regular rate and rhythm without murmurs, gallops, or rubs. RESPIRATORY: Breath sounds equal bilaterally. No accessory muscle use. GASTROINTESTINAL: Abdomen soft, non-tender, nondistended. MUSCULOSKELETAL: No cyanosis, or edema. BACK: Nontender without obvious deformity. No CVA tenderness. Neuro: Sedated, intubated. A/P Assessment and Plan 1. VDRF 2. Shock, likely cardiogenic 3. Acute coronary syndrome. 4. cardiomyopathy with EF of 25-30%. 5. COPD exacerbation. 6. Lactic acidemia. 7. Acute kidney injury. 8. Hyperglycemia. 9. Hypertension. 10. Hyperlipidemia. Plan Neuro: On fentanyl/Diprivan infusion for sedation and vent synchrony. Daily sedation vacation and monitor neuro status closely. Pum: Continue with vent support and maintain sats above 92%. Bronchodilators, Solu-Medrol 40 mg IV q. 8. ICU vent bundle, not a candidate for SBT due to hemodynamic instability. CV: On Levophed to keep MAP > 65 mmHg. Lactic acid 1.7 Continue with Aspirin and heparin drip per [place] protocol. Echo showed EF of 25-30% with diffuse hypokinesis and hypokinesis of the anterior septal and apical myocardium. Cards- Dr. Pena. : Monitor renal function Is and Os and avoid nephrotoxins. Renal function continue to worse with Cr: 4.01 from 3.32 with poor UO. Renal US: No hydronephrosis. Renal- Dr. Gupta. Family is refusing HD. GI: TF-Nepro @40ml/hr, on Protonix 40 mg IV daily for GI prophylaxis. ID: Given vancomycin, Zosyn and azithromycin in ED. Continue Zosyn empirically. and monitor for signs of infections( fever and WBC) Sputum cx: Serratia Endo: SSI with Accu-Chek for glycemic control. Heme: Monitor CBC, Coags- on heparin drip per [place] protocol. GI with Protonix 40 mg daily and DVT prophylaxis with SCDs and heparin drip. Palliative care on case- Alternative code. Lines: Right femoral line placed 09/30 Family will likely transition to comfort care tomorrow and withdrawal support today. Prognosis guarded given multiorgan injury. CCT 30 mins Jason Herrera MD Oct 03, 2016 09:11
[2016-10-03] MEDS: PROPOFOL 1000 MG/100 ML INJ 100 ML IV SCH (09:52)
[2016-10-03] MEDS: NOREPINEPHRINE 4 MG/D5W 250 ML IV SCH (09:52)
[2016-10-03] MEDS ORDERED: LORazepam 2 MG/ML VIAL IV PUSH PRN (11:30)
[2016-10-03] MEDS ORDERED: LORazepam 2 MG/ML VIAL IVS PRN ×2 (11:30→12:15)
[2016-10-03] MEDS ORDERED: HYOSCYAMINE 0.5 MG/ML AMP IV ONE (11:45)
[2016-10-03] MEDS ORDERED: fentaNYL DRIP 250 ML IV SCH (11:45)
[2016-10-03] MEDS ORDERED: LORazepam 2 MG/ML VIAL IV ONE ×2 (11:45→12:00)
[2016-10-03] MEDS ORDERED: HYDROmorphone HCL PF 1 MG/ML VIAL IV PUSH ONE ×2 (11:45→12:00)
[2016-10-03] MEDS ORDERED: HYDROmorphone HCL PF 1 MG/ML VIAL IV PUSH PRN ×2 (12:00)
--- NOTE | 2016-10-03 12:00 | HHI.NPPN ---
Subjective History of Present Illness 85 year old female with AMI Objective Data Data 10/02/16 10/03/16 19:00 07:00 Intake Total 953 ml 1810 ml Output Total 50 ml 125 ml Balance 903 ml 1685 ml Intake Oral 0 ml IV Total 531 ml 1080 ml Tube Feeding 302 ml 610 ml Other 120 ml 120 ml Output Urine Total 50 ml 125 ml # Bowel Movements 2 0 Vital Signs Date Time Temp Pulse Resp B/P Pulse Ox O2 Delivery O2 Flow Rate FiO2 10/03/16 10:00 70 10/03/16 09:00 94 55 10/03/16 08:00 55 10/03/16 08:00 76 10/03/16 08:00 99.1 76 24 98/58 94 10/03/16 06:00 75 10/03/16 04:15 96 55 10/03/16 04:00 97.8 73 26 95/54 97 10/03/16 04:00 55 10/03/16 04:00 73 10/03/16 02:00 79 10/03/16 01:20 92 55 10/03/16 00:00 98.1 71 24 96/55 92 10/03/16 00:00 71 10/03/16 00:00 55 10/02/16 22:00 69 10/02/16 20:34 97 55 10/02/16 20:00 74 10/02/16 20:00 98.0 74 24 114/67 99 10/02/16 20:00 55 10/02/16 18:00 70 10/02/16 16:00 97.9 74 24 100/61 93 10/02/16 16:00 55 10/02/16 16:00 74 10/02/16 15:57 93 55 10/02/16 14:00 70 10/02/16 12:00 97.9 74 24 91/54 94 10/02/16 12:00 55 10/02/16 12:00 74 -: 10/02/16 0545 10/02/16 0545 Physical Exam General Appearance: Pale Pulmonary Resp Exam: Decreased Bases Cardiology CV Exam: Regular Gastrointestinal/Abdomen GI Exam: Soft Extremeties Extremities Exam: Trace Edema Assessment/Plan Problem List: (1) Acute renal failure Plan: She has ATN from cardiogenic shock worsening family leaning towards withdrawal, no dialysis, discussed with daughter Nephrology to sign off (2) Cardiogenic shock Plan: due to AMI Poor prognosis (3) Widespread acute Q wave ST elevation myocardial infarction (STEMI) Plan: Cardiology following (4) Respiratory failure Plan: on ventilator (5) COPD (chronic obstructive pulmonary disease) Plan: chronic Problem Qualifiers (1) Acute renal failure: Qualified Code: N17.0 - Acute renal failure with tubular necrosis (2) Respiratory failure: Qualified Code: J96.01 - Acute respiratory failure with hypoxia (3) COPD (chronic obstructive pulmonary disease): Xin Gupta MD Oct 03, 2016 12:00
[2016-10-03] MEDS ORDERED: LORazepam 2 MG/ML VIAL IV PRN ×2 (12:15)
[2016-10-03] MEDS ORDERED: FUROSEMIDE 20 MG/2 ML VIAL IV PRN (12:15)
[2016-10-03] MEDS ORDERED: BISACODYL 10 MG SUPP PR PRN (12:15)
[2016-10-03] MEDS ORDERED: ACETAMINOPHEN 650 MG SUPP PR PRN (12:15)
[2016-10-03] MEDS ORDERED: HYOSCYAMINE 0.5 MG/ML AMP IV PRN (12:15)
--- NOTE | 2016-10-03 14:55 | HHI.HCPN ---
Reason for visit a. To assist with evaluation and management of symptoms including:dyspnea, pain b. To assist medical decision maker(s) with: better understanding of current medical conditions; weighing benefits/burdens of medical treatment options; making medical treatment decisions. (JULIANNA HORAN) Subjective/Interval History LATE ENTRY for visit done 10/03/16 10:30 AM: I was asked to see this patient by nurse, Vanessa as family is requesting to speak with palliative care for transition to comfort focused care and withdrawal of life support. Upon arrival to the room the patient's daughter, Michelle and grandson were at bedside. Michelle and her sister Sally have decided that the patient would not want to live like this and are requesting to transition to comfort focused care with withdrawal of life support later today. They wanted to give her through the weekend to see if she would have any clinical improvement, to give her a chance and now feel that she would want to transition to comfort focused care at this time. They're very appreciative of the care the patient has received and are thankful that she has lived her life independently until the day she came into the hospital. Medical update provided. Anticipatory guidance reviewed regarding withdrawal of life support and transition to comfort measures. Family requests chocolate packer support the time of withdrawal, chocolate packer Brad notified. Tmax 99.1. Blood pressure 98/58 on pressor support, Levophed 7.5. Remains on mechanical vent 55% FI 02. No new labs or imaging. Dr. Short also saw this patient, orders for transition to comfort were ordered by him. . Family/friend interactions see interval history. . (JULIANNA HORAN) Advance Directives Advance Directive Specifics Health Care Surrogate(s): According to [place] statutes, health care proxy decision-making falls to the patient's 2 children Michelle and Sally. . Significant change in goals: Family desires transition to comfort focused care with withdrawal of life support. . (JULIANNA HORAN) Objective Vital Signs Date Time Temp Pulse Resp B/P Pulse Ox O2 Delivery O2 Flow Rate FiO2 10/03/16 13:37 Room Air 10/03/16 10:00 70 10/03/16 09:00 94 55 10/03/16 08:00 55 10/03/16 08:00 76 10/03/16 08:00 99.1 76 24 98/58 94 10/03/16 06:00 75 10/03/16 04:15 96 55 10/03/16 04:00 97.8 73 26 95/54 97 10/03/16 04:00 55 10/03/16 04:00 73 10/03/16 02:00 79 10/03/16 01:20 92 55 10/03/16 00:00 98.1 71 24 96/55 92 10/03/16 00:00 71 10/03/16 00:00 55 10/02/16 22:00 69 10/02/16 20:34 97 55 10/02/16 20:00 74 10/02/16 20:00 98.0 74 24 114/67 99 10/02/16 20:00 55 10/02/16 18:00 70 10/02/16 16:00 97.9 74 24 100/61 93 10/02/16 16:00 55 10/02/16 16:00 74 10/02/16 15:57 93 55 Intake & Output 10/03/16 10/03/16 07:00 19:00 Intake Total 1810 ml Output Total 125 ml Balance 1685 ml Intake Oral 0 ml IV Total 1080 ml Tube Feeding 610 ml Other 120 ml Output Urine Total 125 ml # Bowel Movements 0 Physical Exam CONSTITUTIONAL/GENERAL: This is a thin elderly lady intubated, open eyes, confused, intubated on ventilator SKIN: No jaundice, rashes, or lesions. Ecchymoses on upper extremities. No wounds seen anteriorly. Skin temperature appropriate. Not diaphoretic. ENT: Hearing grossly normal. Nose without bleeding or purulent drainage. Throat ET tube in place. NECK: Trachea midline. Supple, nontender. No palpable thyroid enlargement or nodularity. CARDIOVASCULAR: Regular rate and rhythm without murmurs, gallops, or rubs. RESPIRATORY/CHEST: decrease breath sound bilaterally. GASTROINTESTINAL: Abdomen soft, non-tender, nondistended. GENITOURINARY: Without palpable bladder distension. Phelps catheter in place. MUSCULOSKELETAL: Extremities without clubbing, cyanosis, or edema. Prominent ecchymosis on the shins of pt's lower ext bilaterally. NEUROLOGICAL: Sleeping comfortably on my visit. (AUNG,JULIANNA R INTEL RECRUITER-C) Diagnostic Tests Laboratory Laboratory Tests Test 12/30/16 12/30/16 12/30/16 12/30/16 15:32 19:15 20:01 23:00 Blood Gas Puncture Site RT RADIAL RT RADIAL Blood Gas Patient Temperature 98.6 98.6 Blood Gas HCO3 17 mmol/L 19 mmol/L (22-26) (22-26) Blood Gas Base Excess -9.0 mmol/L -8.0 mmol/L (-2-2) (-2-2) Blood Gas Oxygen Saturation 95 % (90-100) 90 % (90-100) Arterial Blood pH 7.24 7.21 (7.380-7.420) (7.380-7.420) Arterial Blood Partial 42 mmHg (38-42) 48 mmHg (38-42) Pressure CO2 Arterial Blood Partial 110 mmHg 76 mmHg Pressure O2 (61-120) (61-120) Arterial Blood Oxygen Content 13.6 Vol % 13.4 Vol % (12.0-20.0) (12.0-20.0) Arterial Blood 0.9 % (0-4) 0.9 % (0-4) Carboxyhemoglobin Arterial Blood Methemoglobin 1.3 % (0-2) 1.2 % (0-2) Blood Gas Hemoglobin 10.1 G/DL 10.6 G/DL (12.0-16.0) (12.0-16.0) Oxygen Delivery Device VENTILATOR VENTILATOR Blood Gas Ventilator Setting SEE NOTE PRVC/AC Blood Gas Inspired Oxygen 60 % 60 % Activated Partial 42.9 SEC Thromboplast Time (24.3-30.1) Urine Osmolality 350 MOSM/KG (300-1300) Urine Random Creatinine 59.3 MG/DL Urine Random Sodium 14 MEQ/L Test 10/01/16 10/01/16 10/02/16 10/02/16 04:00 11:48 05:43 05:45 White Blood Count 11.3 TH/MM3 12.5 TH/MM3 (4.0-11.0) (4.0-11.0) Red Blood Count 3.28 MIL/MM3 3.44 MIL/MM3 (4.00-5.30) (4.00-5.30) Hemoglobin 9.7 GM/DL 10.0 GM/DL (11.6-15.3) (11.6-15.3) Hematocrit 29.2 % 30.6 % (35.0-46.0) (35.0-46.0) Mean Corpuscular Volume 89.0 FL 89.2 FL (80.0-100.0) (80.0-100.0) Mean Corpuscular Hemoglobin 29.6 PG 29.1 PG (27.0-34.0) (27.0-34.0) Mean Corpuscular Hemoglobin 33.2 % 32.6 % Concent (32.0-36.0) (32.0-36.0) Red Cell Distribution Width 14.2 % 14.2 % (11.6-17.2) (11.6-17.2) Platelet Count 257 TH/MM3 273 TH/MM3 (150-450) (150-450) Mean Platelet Volume 10.0 FL 10.0 FL (7.0-11.0) (7.0-11.0) Neutrophils (%) (Auto) 93.1 % 92.1 % (16.0-70.0) (16.0-70.0) Lymphocytes (%) (Auto) 3.0 % 2.0 % (9.0-44.0) (9.0-44.0) Monocytes (%) (Auto) 3.9 % (0.0-8.0) 5.8 % (0.0-8.0) Eosinophils (%) (Auto) 0.0 % (0.0-4.0) 0.0 % (0.0-4.0) Basophils (%) (Auto) 0.0 % (0.0-2.0) 0.1 % (0.0-2.0) Neutrophils # (Auto) 10.5 TH/MM3 11.5 TH/MM3 (1.8-7.7) (1.8-7.7) Lymphocytes # (Auto) 0.3 TH/MM3 0.3 TH/MM3 (1.0-4.8) (1.0-4.8) Monocytes # (Auto) 0.4 TH/MM3 0.7 TH/MM3 (0-0.9) (0-0.9) Eosinophils # (Auto) 0.0 TH/MM3 0.0 TH/MM3 (0-0.4) (0-0.4) Basophils # (Auto) 0.0 TH/MM3 0.0 TH/MM3 (0-0.2) (0-0.2) CBC Comment DIFF FINAL DIFF FINAL Differential Comment Activated Partial 45.6 SEC 37.6 SEC Thromboplast Time (24.3-30.1) (24.3-30.1) Sodium Level 142 MEQ/L 139 MEQ/L (136-145) (136-145) Potassium Level 4.4 MEQ/L 4.2 MEQ/L (3.5-5.1) (3.5-5.1) Chloride Level 108 MEQ/L 105 MEQ/L (98-107) (98-107) Carbon Dioxide Level 19.8 MEQ/L 20.7 MEQ/L (21.0-32.0) (21.0-32.0) Anion Gap 14 MEQ/L (5-15) 13 MEQ/L (5-15) Blood Urea Nitrogen 56 MG/DL (7-18) 76 MG/DL (7-18) Creatinine 3.32 MG/DL 4.09 MG/DL (0.50-1.00) (0.50-1.00) Estimat Glomerular Filtration 13 ML/MIN (>89) 10 ML/MIN (>89) Rate Random Glucose 195 MG/DL 193 MG/DL (74-106) (74-106) Calcium Level 7.4 MG/DL 8.0 MG/DL (8.5-10.1) (8.5-10.1) Protein Corrected Calcium 8.3 MG/DL (8.5-10.1) Magnesium Level 1.9 MG/DL (1.5-2.5) Total Protein 5.4 GM/DL (6.4-8.2) Blood Gas Puncture Site RT RADIAL Blood Gas Patient Temperature 98.6 Blood Gas HCO3 17 mmol/L (22-26) Blood Gas Base Excess -9.2 mmol/L (-2-2) Blood Gas Oxygen Saturation 93 % (90-100) Arterial Blood pH 7.23 (7.380-7.420) Arterial Blood Partial 42 mmHg (38-42) Pressure CO2 Arterial Blood Partial 88 mmHg Pressure O2 (61-120) Arterial Blood Oxygen Content 14.1 Vol % (12.0-20.0) Arterial Blood 0.8 % (0-4) Carboxyhemoglobin Arterial Blood Methemoglobin 1.4 % (0-2) Blood Gas Hemoglobin 10.8 G/DL (12.0-16.0) Oxygen Delivery Device VENTILATOR Blood Gas Ventilator Setting SEE COMMENTS Blood Gas Inspired Oxygen 55 % Test 10/02/16 10/02/16 10/03/16 16:35 23:10 05:35 Activated Partial 35.5 SEC 44.5 SEC 44.8 SEC Thromboplast Time (24.3-30.1) (24.3-30.1) (24.3-30.1) (UJLIANNA HORAN) Result Diagram: 10/02/16 0545 10/02/16 0545 Microbiology Microbiology Date/Time Procedure Status Source Growth 10/02/16 06:50 Stool Occult Blood (IZABELLA) - Final Complete Stool Stool HEMOCCULT POSITIVE . Imaging Last Impressions Renal Ultrasound 09/30/16 0000 Signed Impressions: Service Date/Time: Friday, September 30, 2016 14:31 - CONCLUSION: Lower limits of acceptable normal size the kidneys with mild echogenicity to the cortex which would suggest parenchymal disease. No evidence of obstruction or hydronephrosis. Phelps catheter in place in the urinary bladder. Ascitic fluid and right pleural effusion Maxim Pena MD Chest X-Ray 09/29/16 1059 Signed Impressions: Service Date/Time: September 11:07 - CONCLUSION: 1. ET tube and NG tube are in good position. 2. No pneumothorax. 3. Hyperaeration bilaterally with chronic interstitial changes characteristic of COPD. 4. No acute pulmonary infiltrates. Prakash Diane MD . Procedures 09/29/16 Echo - ejection fraction 25 30% . (JULIANNA HORAN) Assessment and Plan Disease Oriented Problem List: (1) Respiratory failure Comment: cardiogenic (2) Widespread acute Q wave ST elevation myocardial infarction (STEMI) Comment: echo show EF of 25-30%. Diffuse hypokinesis anterior septal and apical myocardium. (3) COPD (chronic obstructive pulmonary disease) (4) Cardiogenic shock (5) Kidney injury Symptom Scale: (1) Dyspnea 0-10 Scale: Unable to quantify (2) Pain Comment: Potential pain sources include MO, failure, mechanical ventilation/ intubation. Pertinent Non-Medical Issues Psychosocial: Spiritual: Legal: Ethical issues impacting care: Important Contacts Charlene Norton [phone] Swathi Davies [phone] Prognosis 85 year old with COPD, now with MO, and cardiogenic shock. Currently getting heparin bolus, on ventalator. Prognosis is guarded to poor at this time. Code Status: No Code Plan * According to [place] statutes, health care proxy decision-making falls to the patient's 2 daughters, Charlene Norton and Sally Whyte. Son . * NO CODE. * Goals: transition to comfort focused care with withdrawal of life support. * SYMPTOMS: Dyspnea - on mech vent. Transition to comfort focused care with withdrawal of life support. Pain: comfort orders written by Dr. Short. * Exhibits B & C signed on chart. * Orders written for withdrawal of life support transition to comfort focused care by Dr. Short. * Palliative care will continue to follow as needed. . (JULIANNA HORAN) Attestation To help prompt me to consider important information that might be impacting today's encounter and assessment, information from prior notes written by myself or my colleagues may have been "brought forward" into today's note. My signature on this note, however, is an attestation that I personally performed the exam, history, and/or decision-making noted today, and, unless otherwise indicated, the interactions with patient, family, and staff as well as the review of records all occurred today. I also attest that the listed assessment and stated plan reflect my best clinical judgment today based on the combination of historical information, prior notes, and today's exam/ interactions. When time spent is documented, it refers only to time spent today by the signer, or if indicated, combined time spent today by collaborating physician/nurse practitioner. (JULIANNA HORAN) Collaborating MD Comments Chart reviewed. Patient examined personally by me. Case discussed with Palliative Care INTEL RECRUITER. Above INTEL RECRUITER note reviewed and I concur. EXAM * Unresponsive, mechanically ventilated in an MICU bed. * Diminished air movement bilaterally. No wheezing. * Regular rate/rhythm. JVD noted. * Abdomen benign. * 1-2+ upper extremity edema. Ecchymoses on shins. Patient is incapacitated to make her own decisions and will not be regaining capacity. Proxy decision makers agree that given condition and prognosis, patient's goals/ preferences would best be honored by foregoing further aggressive care, withdrawing life support, and transitioning to "comfort measures only." Anticipatory guidance regarding withdrawal of life support was provided. I personally wrote orders for withdrawal and post-withdrawal comfort. Appropriate Exhibits signed. TIME: Over 50 minutes was spent on floor of combined nurse practitioner/ physician time. Time was spent on chart review, patient exam, discussion / anticipatory guidance regarding withdrawal of life support; and writing orders for withdrawal and post-withdrawal comfort. . (Zacarias Short MD) JULAINNA HORAN Oct 03, 2016 14:55 Zacarias Short MD Oct 03, 2016 18:54
[2016-10-06 19:20] LABS: CRITICAL VALUE YES
--- NOTE | 2016-11-15 10:22 | MD ---
cc: CHERIE WRAY M.D. ADMISSION DATE: 09/29/2016 DISCHARGE DATE: 10/03/2016 DATE OF : 1930 HISTORY OF PRESENT ILLNESS: The patient is a 85-year-old female his with past medical history of hypertension, active smoker, COPD, hyperlipidemia, admitted to [facility] ED on September 29 via EMS as a possible STEMI alert. The patient per daughter complained of chest congestion and cough and she was started on Z-Galidno by her primary care physician. In the ED she went into severe respiratory distress and was tachycardiac and had a rectal temperature of 100.1. She was subsequently intubated, sedated and placed on full mechanical ventilation. Post intubation the patient became hypotensive and was started on Levophed. EKG in the ED showed anterior septal myocardial infarction or showed possible anterior septal myocardial infarction. A stat echo was performed which showed cardiomyopathy with ejection fraction of 25-30% diffuse hypokinesis and hypokinesis of the anterior septal and apical myocardium. As she was seen by Dr. Pena from cardiology service and started on heparin infusion per [place] protocol. Chest x-ray Post intubation showed COPD changes ET tube above the sara and chronic interstitial changes. The patient also was placed on broad-spectrum antibiotics in the form of vancomycin, Zosyn and azithromycin. She was she was on Diprivan and fentanyl infusion for sedation and vent synchrony. The patient also had acute renal failure and a renal ultrasound showed no evidence of any hydronephrosis. Dr. Gupta from nephrology service was consulted and family refused hemodialysis. The patient also received nutrition support in the form of tube feeds, Nepro with 40 ml per hour and Protonix for GI prophylaxis. Her sputum culture was positive for Serratia day. The patient also was on sliding scale insulin for glycemic control. She had a right femoral line which was placed on September 30. Palliative care was consulted and family elected to transition to comfort care and withdrawal support, She on October 03, 2016. MD FLOR Mcmillan/david /3:38 PM /10:16 AM
== END 2016-10-03 14:03 | disposition expired ==
LOC: NEPE 10:29 → NEDA 12:29 → HIMN 16:15
PROVIDERS: ADMIT Internal Medicine Critical Care Medicine; ATTEND Internal Medicine Critical Care Medicine
PROC: 5A1945Z Respiratory Ventilation, 24-96 Consecutive Hours (ICD-10-PCS; principal; 2016-09-29)
PROC: 0BH17EZ Insertion of Endotracheal Airway into Trachea, Via Natural or Artificial Opening (ICD-10-PCS; 2016-09-29)
DX: I21.3 ST elevation (STEMI) myocardial infarction of unspecified site (principal); J96.01 Acute respiratory failure with hypoxia; N17.0 Acute kidney failure with tubular necrosis; J44.1 Chronic obstructive pulmonary disease with (acute) exacerbation; E87.2 Acidosis; E87.1 Hypo-osmolality and hyponatremia; I42.9 Cardiomyopathy, unspecified; R57.0 Cardiogenic shock; I36.1 Nonrheumatic tricuspid (valve) insufficiency; F17.210 Nicotine dependence, cigarettes, uncomplicated; E78.00 Pure hypercholesterolemia, unspecified; I10 Essential (primary) hypertension; E78.5 Hyperlipidemia, unspecified; R73.9 Hyperglycemia, unspecified; Z51.5 Encounter for palliative care; Z66 Do not resuscitate; I24.9 Acute ischemic heart disease, unspecified
CPT/HCPCS: 31500; 36556; 36600; 43753; 51702; 71010; 76775; 80048; 81001; 82272; 82550; 82552; 82570; 82805; 82948; 83605; 83735; 83880; 83935; 84155; 84300; 84484; 85025; 85027; 85610; 85730; 87040; 87070; 87077; 87186; 87205; 87641; 93005; 93306; 94002; 94003; 94640; 94664; 96365; 96366; 96375; 99292; C9113; J0330; J0456; J0610; J1170; J1644; J1980; J2060; J2250; J2543; J2920; J3010; J3370; J7030; J7050; P9045